=== PATIENT | female | born 1965 | race Caucasian/White ===

== ENCOUNTER 2016-06-27 14:28 | Emergency (ER) | payer OTHER ==
[2016-06-27 14:34] VITALS: BMI 32.5
[2016-06-27] MEDS ORDERED: METOCLOPRAMIDE HCL INJECTION 10 MG/2 ML VIAL IVPUSH ONE (15:28)
[2016-06-27] MEDS ORDERED: SODIUM CHLORIDE 1,000 ML IV ONE (15:28)
--- NOTE | 2016-06-27 15:31 | PDOC ---
History of Present Illness - General History Source: Patient Exam Limitations: No Limitations - History of Present Illness Initial Comments: 06/27/16 17:04 "The patient is a 51-year-old female, with a significant past medical history of CAD (stent placement), HTN, hyperlipidemia, and acid reflux, who present to the ED with chills, lightheadedness, and nausea today. The patient states that she began to experience chills and lightheadedness around 1PM today. She states that her ""hands looked white"". She reports feeling nauseous but denies any vomiting. She also reports experiencing shortness of breath during her episode of lightheadedness that has now resolved. Upon arrival to the ED, the patient states that she is still feeling lightheaded, nauseous, and now has a headache. Pt's last visit to her [facility] was back in July. Pt denies any vertigo, vision changes, numbness/tingling/weakness, neck pain, back pain. PCP: Dr. Juárez Phone: The patient denies any fever, cough, rhinorrhea, sore throat, vomiting, or abdominal pain. The patient denies any chest pain. " <Juana Dalton - Last Filed: 06/27/16 17:04> <Yosef Cabral - Last Filed: 06/27/16 17:42> - General Chief Complaint: Weakness Stated Complaint: SOB, NAUSEA Time Seen by Provider: 06/27/16 15:07 Past History <Juana Dalton - Last Filed: 06/27/16 17:04> - Past Medical History Anemia: Yes Asthma: No Cancer: No Cardiac Disorders: Yes (heart attack 2008, stent) CVA: No COPD: No CHF: No Dementia: No Diabetes: No GI Disorders: Yes (reflux) Disorders: No HTN: Yes Hypercholesterolemia: Yes Liver Disease: No Seizures: No Thyroid Disease: No - Surgical History Abdominal Surgery: No Appendectomy: No Cardiac Surgery: Yes (cardiac stents) Cholecystectomy: Yes Lung Surgery: No Neurologic Surgery: No Orthopedic Surgery: Yes (left shoulder arthroscopy 6 weeks ago) - Immunization History Immunization Up to Date: Yes - Psycho/Social/Smoking Cessation Hx Anxiety: No Suicidal Ideation: No Smoking Status: No Smoking History: Never smoked Have you smoked in the past 12 months: No Number of Cigarettes Smoked Daily: 0 Information on smoking cessation initiated: No Hx Alcohol Use: No Drug/Substance Use Hx: No Substance Use Type: None Hx Substance Use Treatment: No <Yosef Cabral - Last Filed: 06/27/16 17:42> - Past Medical History Allergies/Adverse Reactions: Allergies Allergy/AdvReac Type Severity Reaction Status Date / Time No Known Allergies Allergy Verified 06/27/16 14:34 Home Medications: Ambulatory Orders Aspirin [ASA -] 81 mg PO DAILY 06/27/16 Fenofibrate [Lofibra] 160 mg PO DAILY 06/27/16 Lisinopril/Hydrochlorothiazide [Lisinopril-Hctz 10-12.5 mg Tab] 1 each PO DAILY 06/27/16 Metoprolol Succinate [Toprol Xl -] 50 mg PO DAILY 06/27/16 Pravastatin Sodium [Pravachol (Nf)] 20 mg PO HS 06/27/16 Ranitidine HCl [Zantac] 150 mg PO DAILY 06/27/16 Review of Systems - Review of Systems Able to Perform ROS?: Yes Comments:: 06/27/16 17:04 CONSTITUTIONAL: Reported: (+)Chills No reported: Fever, Diaphoresis, Generalized Weakness, Malaise, Loss of Appetite HEENT: No reported: Rhinorrhea, Nasal Congestion, Throat Pain, Throat Swelling, Difficulty Swallowing, Mouth Swelling, Ear Pain, Eye Pain, Visual Changes CARDIOVASCULAR: No reported: Chest Pain, Syncope, Palpitations, Irregular Heart Rate, Peripheral Edema RESPIRATORY: No reported: Cough, Shortness of Breath, SOB with Exertion, Orthopnea, Wheezing , Stridor, Hemoptysis GASTROINTESTINAL: Reported: Nausea No reported: Abdominal pain, Abdominal Distension,Vomiting, Diarrhea, Constipation, Melena, Hematochezia GENITOURINARY: No reported: Dysuria, Frequency, Urgency, Hesitancy, Flank Pain, Genital Pain MUSCULOSKELETAL: No reported: Myalgia, Arthralgia, Joint Swelling, Back pain, Neck Pain SKIN: No reported: Rash, Itching, Pallor HEMEATOLOGIC/IMMUNOLOGIC: No reported: Easy Bleeding, Easy Bruising, Lymphadenopathy, Frequent infections ENDOCRINE: No reported: Unexplained Weight Gain, Unexplained Weight Loss, Heat Intolerance , Cold Intolerance NEUROLOGIC: Reported: Headache, Lightheadedness No reported: Focal Weakness, Paresthesias, Vertigo, Unsteady Gait, Seizure, Mental Status Changes, Incontinence PSYCHIATRIC: No reported: Anxiety, Depression <Juana Dalton - Last Filed: 06/27/16 17:04> *Physical Exam - Vital Signs Last Vital Signs Temp Pulse Resp BP Pulse Ox 83 18 157/86 100 06/27/16 14:32 06/27/16 14:32 06/27/16 14:32 06/27/16 14:32 - Physical Exam Comments: 06/27/16 17:05 GENERAL: The patient is awake, alert, and fully oriented, Nontoxic - in no acute distress. HEAD: Normocephalic, atraumatic. EYES: extraocular movements intact, sclera anicteric, conjunctiva clear. ENT: Normal voice, Moist mucous membranes. NECK: Normal range of motion, supple LUNGS: Breath sounds equal, clear to auscultation bilaterally. No wheezes, no rhonchi, no rales. HEART: Regular rate and rhythm, without murmur, rub or gallop. ABDOMEN: Soft, nontender, normoactive bowel sounds. No guarding, no rebound.No CVA tenderness EXTREMITIES: Normal range of motion, no edema. No clubbing or cyanosis. No cords, erythema, or tenderness. NEUROLOGICAL: No facial assymetry, Normal speech, PSYCH: Normal mood, normal affect. SKIN: Warm, Dry, normal turgor, <ShaMaximeJuana - Last Filed: 06/27/16 17:04> - Vital Signs Last Vital Signs Temp Pulse Resp BP Pulse Ox 83 18 157/86 100 06/27/16 14:32 06/27/16 14:32 06/27/16 14:32 06/27/16 14:32 <Yosef Cabral - Last Filed: 06/27/16 17:42> Heart Score/ECG Review - ECG Impressions Comment:: 06/27/16 17:24 Twelve-lead EKG was performed and reviewed by me. There is normal sinus rhythm with a normal rate. Rate of 63 criteria for LVH. no st changes suggestive of acute ischemia EKG UNCHANGED FROM PREVIOUS EKG IN 2013 <Yosef Cabral - Last Filed: 06/27/16 17:42> ED Treatment Course - LABORATORY CBC & Chemistry Diagram: 06/27/16 16:53 06/27/16 16:53 - Medications Given in the ED: ED Medications Discontinued Medications Generic Name Dose Route Start Last Admin Trade Name Bhargav PRN Reason Stop Dose Admin Sodium Chloride 1,000 mls @ 1,000 mls/hr 06/27/16 15:28 06/27/16 16:21 Normal Saline - IV 06/27/16 16:27 1,000 mls/hr .Q1H ONE Administration Metoclopramide HCl 10 mg 06/27/16 15:28 06/27/16 16:22 Reglan Injection - IVPUSH 06/27/16 15:29 10 mg ONCE ONE Administration <Juana Dalton - Last Filed: 06/27/16 17:04> - LABORATORY CBC & Chemistry Diagram: 06/27/16 16:53 06/27/16 16:53 - RADIOLOGY Radiology Studies Ordered: Category Date Time Status CHEST X-RAY PORTABLE* [RAD] Stat Radiology 06/27/16 15:28 Ordered <MariannaYosef - Last Filed: 06/27/16 17:42> Medical Decision Making - Medical Decision Making 06/27/16 15:29 51y F hx of htn, hl, cad (s/p stent), presents with sudden onset of generalized fatigue, feeling slightly lightheaded (Denies vertigo) associated with nausea, mild headache, feeling warm - no associated cough, levin, cp, nasal congestion, abd pain, vomiting, diarrhea, dysuria, fever/chills. Pts exam is unremarkable will ck labs to r.o anemia, metabolic dernagement will ck ekg to screen for acs will give fluids reglan will reassess 06/27/16 17:40 Patient's blood work was reviewed it is unremarkable The patient's EKG is unchanged from her prior EKG in 2013 The patient was reassessed she is feeling improved, asymptomatic. We'll discharge patient to follow up with primary care doctor return precautions were discussed including any change in symptoms or feeling worse. I discussed the physical exam findings, ancillary test results and final diagnoses with the patient. I answered all of the patient's questions. The patient was satisfied with the care received and felt comfortable with the discharge plan and treatment plan. The patient will call their primary care physician within 24 hours to arrange follow-up and will return to the Emergency Department with any new, persistent or worsening symptoms. A portion of this note was documented by scribe services under my direction. I have reviewed the details of the note, within reason, and agree with the documentation with the following case summary and management plan written by me <Yosef Cabral - Last Filed: 06/27/16 17:42> *DC/Admit/Observation/Transfer - Attestations Scribe Attestion: 06/27/16 17:05 Documentation prepared by Juana Dalton, acting as director of graduate medical education for Yosef Cabral MD. <Juana Dalton - Last Filed: 06/27/16 17:04> - Discharge Dispostion Admit: No <Yosef Cabral - Last Filed: 06/27/16 17:42> Diagnosis at time of Disposition: Malaise - Discharge Dispostion Disposition: HOME Condition at time of disposition: Improved - Referrals Referrals: Jesu Juárez [Primary Care Provider] - - Patient Instructions Printed Discharge Instructions: DI for Fatigue Additional Instructions: Return to the emergency department immediately with ANY new, persistent or worsening symptoms including any worsening of your symptoms, any headache, dizziness, chest pain, vomiting, fevers or other concerns. You MUST call and follow up with your doctor tomorrow for further evaluation of your symptoms. Results were discussed with you. Please make sure your doctor reviews the results of your emergency evaluation. Print Language: CROATIAN
[2016-06-27] MEDS ORDERED: METOCLOPRAMIDE HCL INJECTION 10 MG/2 ML VIAL ONE (16:17)
[2016-06-27 17:04] LABS: URINE APPEARANCE CLEAR; URINE BILIRUBIN NEGATIVE (NEGATIVE); URINE BLOOD NEGATIVE (NEGATIVE); URINE COLOR STRAW; URINE GLUCOSE (UA) NEGATIVE (NEGATIVE); URINE KETONE NEGATIVE (NEGATIVE); URINE LEUK ESTERASE NEGATIVE (NEGATIVE); URINE NITRITE NEGATIVE (NEGATIVE); URINE PROTEIN NEGATIVE (NEGATIVE); URINE UROBILINOGEN NEGATIVE E.U./dl (0.2-1.0)
[2016-06-27 17:05] LABS: BASOPHIL 0.4 % (0-2.0); EOSINOPHIL 0.2 % (0-4.5); MCH 28.1 pg (25.7-33.7); MEAN CELL VOLUME 85.2 fl (80-96); MEAN PLT VOLUME 8.4 fl (7.5-11.1); NEUTROPHILS 78.2 % (42.8-82.8); PLATELET COUNT 312 K/MM3 (134-434); RDW 13.4 % (11.6-15.6); WHITE BLOOD COUNT 12.1 K/mm3 (4.0-10.0)
[2016-06-27 17:28] LABS: ALBUMIN 4.7 g/dl (3.4-5.0); ANION GAP 5 (8-16); CALCIUM 9.6 mg/dL (8.5-10.1); CO2 30 mmol/L (21-32); CREATININE 0.8 mg/dL (0.55-1.02); GLUCOSE,RANDOM 105 mg/dL (74-106); MAGNESIUM 2.1 mg/dL (1.8-2.4); SGOT/AST 22 U/L (15-37); SGPT/ALT 40 U/L (12-78)
[2016-06-27 17:30] LABS: ALK PHOS 83 U/L (45-117); BILIRUBIN,TOTAL 0.4 mg/dL (0.2-1.0); TOT PROT 8.1 g/dl (6.4-8.2)
[2016-06-27 17:50] VITALS: BP 118/67; PULSE 72
--- NOTE | 2016-06-28 11:25 | EKG ---
Test Reason : Blood Pressure : / mmHG Vent. Rate : 063 BPM Atrial Rate : 063 BPM P-R Int : 184 ms QRS Dur : 092 ms QT Int : 434 ms P-R-T Axes : 020 -13 006 degrees QTc Int : 444 ms NORMAL SINUS RHYTHM MODERATE VOLTAGE CRITERIA FOR LVH, MAY BE NORMAL VARIANT WHEN COMPARED WITH ECG OF 13-OCT-2014 22:12, SINUS RHYTHM HAS REPLACED ATRIAL FIBRILLATION Confirmed by NOHEMY PEREZ, ASHUTOSH ([id number]) on 06/28/2016 11:25:33 AM Referred By: Confirmed By:ASHUTOSH SLATER MD
== END 2016-06-27 17:50 | disposition home or self-care (01) ==
LOC: JER 14:28
PROC: 3E033GC Introduction of Other Therapeutic Substance into Peripheral Vein, Percutaneous Approach (ICD-10-PCS; principal; 2016-06-27)
DX: R53.81 Other malaise (principal); I10 Essential (primary) hypertension; E78.5 Hyperlipidemia, unspecified; E78.00 Pure hypercholesterolemia, unspecified; Z95.5 Presence of coronary angioplasty implant and graft
CPT/HCPCS: 36415; 71010-TC; 80053; 81003; 83735; 85025; 93005; 93010; 99283-25

== ENCOUNTER 2017-06-11 19:29 | Emergency (ER) | payer OTHER ==
[2017-06-11 19:41] VITALS: BP 140/86; PULSE 102; TEMP 98.1; BMI 30.7
[2017-06-11] MEDS ORDERED: ONDANSETRON *ODT* 4 MG TABLET SL ONE (19:44)
--- NOTE | 2017-06-11 19:45 | PDOC ---
Rapid Medical Evaluation Chief Complaint: Vomiting/Diarrhea Time Seen by Provider: 06/11/17 19:43 Medical Evaluation: Allergies Allergy/AdvReac Type Severity Reaction Status Date / Time No Known Allergies Allergy Verified 06/27/16 14:34 Vital Signs Temp Pulse Resp BP Pulse Ox 98.1 F 102 H 17 140/86 98 06/11/17 19:40 06/11/17 19:40 06/11/17 19:40 06/11/17 19:40 06/11/17 19:40 06/11/17 19:45 I have performed a brief in-person evaluation of this patient. The patient presents with a chief complaint of: vomiting/diarrhea since this am I have ordered the following: zofran The patient will proceed to the ED for further evaluation. Discharge Disposition - Diagnosis Vomiting - Referrals - Patient Instructions - Post Discharge Activity
--- NOTE | 2017-06-11 22:15 | PDOC ---
History of Present Illness - History of Present Illness Initial Comments: 06/11/17 22:23 The patient is a 52 year old female, with a significant past medical history of hypertension (compliant with medications), who presents to the emergency department with nausea, vomiting, diarrhea since this morning, She reportedly returned a month ago from the [facility] [place], however, states her symptoms just started this morning. She denies visualizing blood in her stools or emesis. She denies chest pain, shortness of breath, headache and dizziness. She denies fever, chills, and constipation. She denies dysuria, frequency, urgency and hematuria. Allergies: NKDA Past surgical history: cholecystectomy, hysterectomy <Mary Pat - Last Filed: 06/11/17 22:23> - General History Source: Patient <Junito Carrasquillo - Last Filed: 06/12/17 00:59> - General Chief Complaint: Vomiting/Diarrhea Stated Complaint: VOMITING Time Seen by Provider: 06/11/17 19:43 Past History <Mary Pat - Last Filed: 06/11/17 22:23> - Past Medical History Anemia: Yes Asthma: No Cancer: No Cardiac Disorders: Yes (heart attack 2008, stent) CVA: No COPD: No CHF: No Dementia: No Diabetes: No GI Disorders: Yes (reflux) Disorders: No HTN: Yes Hypercholesterolemia: Yes Liver Disease: No Seizures: No Thyroid Disease: No - Surgical History Abdominal Surgery: No Appendectomy: No Cardiac Surgery: Yes (cardiac stents) Cholecystectomy: Yes Lung Surgery: No Neurologic Surgery: No Orthopedic Surgery: Yes (left shoulder arthroscopy 6 weeks ago) - Immunization History Immunization Up to Date: Yes - Suicide/Smoking/Psychosocial Hx Smoking Status: No Smoking History: Never smoked Have you smoked in the past 12 months: No Number of Cigarettes Smoked Daily: 0 Information on smoking cessation initiated: No Hx Alcohol Use: No Drug/Substance Use Hx: No Substance Use Type: None Hx Substance Use Treatment: No <Junito Carrasquillo - Last Filed: 06/12/17 00:59> - Past Medical History Allergies/Adverse Reactions: Allergies Allergy/AdvReac Type Severity Reaction Status Date / Time No Known Allergies Allergy Verified 06/11/17 22:55 Home Medications: Ambulatory Orders Aspirin [ASA -] 81 mg PO DAILY 06/27/16 Fenofibrate [Lofibra] 160 mg PO DAILY 06/27/16 Lisinopril/Hydrochlorothiazide [Lisinopril-Hctz 10-12.5 mg Tab] 1 each PO DAILY 06/27/16 Metoprolol Succinate [Toprol Xl -] 50 mg PO DAILY 06/27/16 Pravastatin Sodium [Pravachol (Nf)] 20 mg PO HS 06/27/16 Ranitidine HCl [Zantac] 150 mg PO DAILY 06/27/16 Dicyclomine HCl [Bentyl] 20 mg PO Q6H #20 tablet 06/12/17 Pantoprazole Sodium [Protonix] 40 mg PO DAILY #30 tablet. 06/12/17 Review of Systems - Review of Systems Able to Perform ROS?: Yes Comments:: 06/11/17 22:24 CONSTITUTIONAL: Absent: fever, chills, diaphoresis, generalized weakness, malaise, loss of appetite HEENT: Absent: rhinorrhea, nasal congestion, throat pain, throat swelling, difficulty swallowing, mouth swelling, ear pain, eye pain, visual Changes CARDIOVASCULAR: Absent: chest pain, syncope, palpitations, irregular heart rate, lightheadedness , peripheral edema RESPIRATORY: Absent: cough, shortness of breath, dyspnea with exertion, orthopnea, wheezing, stridor, hemoptysis GASTROINTESTINAL: (+) nausea, vomiting, diarrhea, Absent: abdominal pain, abdominal distension, constipation, melena, hematochezia GENITOURINARY: Absent: dysuria, frequency, urgency, hesitancy, hematuria, flank pain, genital pain MUSCULOSKELETAL: Absent: myalgia, arthralgia, joint swelling SKIN: Absent: rash, itching, pallor HEMATOLOGIC/IMMUNOLOGIC: Absent: easy bleeding, easy bruising, lymphadenopathy, frequent infections ENDOCRINE: Absent: unexplained weight gain, unexplained weight loss, heat intolerance, cold intolerance NEUROLOGIC: Absent: headache, focal weakness or paresthesias, dizziness, unsteady gait, seizure, mental status changes, bladder or bowel incontinence PSYCHIATRIC: Absent: anxiety, depression, suicidal or homicidal ideation, hallucinations. <Mary Pat - Last Filed: 06/11/17 22:23> *Physical Exam - Vital Signs Last Vital Signs Temp Pulse Resp BP Pulse Ox 98.1 F 102 H 17 140/86 98 06/11/17 19:40 06/11/17 19:40 06/11/17 19:40 06/11/17 19:40 06/11/17 19:40 - Physical Exam Comments: 06/11/17 22:25 GENERAL: Well developed, well nourished. Awake and alert. No acute distress. HEENT: (+) Dry mucous membranes. Normocephalic, atraumatic. PERRLA, EOMI. No conjunctival pallor. Sclera are non icteric. Oropharynx is clear. NECK: Supple. Full ROM. No JVD. Carotid pulses 2+ and symmetric, without bruits. No thyromegaly. No lymphadenopathy. CARDIOVASCULAR: Regular rate and rhythm. No murmurs, rubs, or gallops. Distal pulses are 2+ and symmetric. PULMONARY: No evidence of respiratory distress. Lungs clear to auscultation bilaterally. No wheezing, rales or rhonchi. ABDOMINAL: Soft. Non-tender. Non-distended. No rebound or guarding. No organomegaly. Normoactive bowel sounds. MUSCULOSKELETAL Normal range of motion at all joints. No bony deformities or tenderness. No CVA tenderness. EXTREMITIES: No cyanosis. No clubbing. No edema. No calf tenderness. SKIN: Warm and dry. Normal capillary refill. No rashes. No jaundice. NEUROLOGICAL: Alert, awake, appropriate. Cranial nerves 2-12 intact. Normoreflexic in the upper and lower extremities. Normal speech. Toes are down-going bilaterally. Gait is normal without ataxia. PSYCHIATRIC: Cooperative. Good eye contact. Appropriate mood and affect. <Mary Pat - Last Filed: 06/11/17 22:23> - Vital Signs Last Vital Signs Temp Pulse Resp BP Pulse Ox 98.1 F 102 H 17 140/86 98 06/11/17 19:40 06/11/17 19:40 06/11/17 19:40 06/11/17 19:40 06/11/17 19:40 <Junito Carrasquillo - Last Filed: 06/12/17 00:59> ED Treatment Course - LABORATORY CBC & Chemistry Diagram: 06/11/17 22:50 06/11/17 22:50 <Junito Carrasquillo - Last Filed: 06/12/17 00:59> Medical Decision Making - Medical Decision Making 06/12/17 00:57 Dr. Sinisterra: The scribe's documentation has been prepared under my direction and personally reviewed by me in its entirery. I confirm that the note above accurately reflects all work, treatment, procedures, and medical decision making performed by me. Pt feels better. Pt will follow up with her pcp or GI as needed if her symptoms persist. <Junito Carrasquillo - Last Filed: 06/12/17 00:59> *DC/Admit/Observation/Transfer - Attestations Scribe Attestion: 06/11/17 22:25 Documentation prepared by Mary Pta, acting as medical laboratory manager for Junito Carrasquillo DO <Mary Pat - Last Filed: 06/11/17 22:23> - Discharge Dispostion Admit: No <Junito Carrasquillo - Last Filed: 06/12/17 00:59> Diagnosis at time of Disposition: Vomiting - Discharge Dispostion Disposition: HOME Condition at time of disposition: Stable - Prescriptions Prescriptions: Dicyclomine HCl [Bentyl] 20 mg PO Q6H #20 tablet Pantoprazole Sodium [Protonix] 40 mg PO DAILY #30 tablet.dr - Referrals Referrals: Jesu Juárez [Primary Care Provider] - Kyle Castillo MD [Staff Physician] - - Patient Instructions Printed Discharge Instructions: DI for Vomiting -- Adult Additional Instructions: Please take medication as directed. Follow up with your doctor as soon as possible if symptoms don't improve. Print Language: MONEGASQUE - Post Discharge Activity
[2017-06-11] MEDS ORDERED: KETOROLAC TROMETHAMINE 30 MG/1 ML VIAL IVPUSH ONE (22:20)
[2017-06-11] MEDS ORDERED: ONDANSETRON 4 MG/2 ML VIAL IVPUSH STA (22:20)
[2017-06-11] MEDS ORDERED: SODIUM CHLORIDE 1,000 ML IV STA (22:20)
[2017-06-11] MEDS ORDERED: ONDANSETRON 4 MG/2 ML VIAL ONE (22:40)
[2017-06-11] MEDS ORDERED: KETOROLAC TROMETHAMINE 30 MG/1 ML VIAL ONE (22:40)
[2017-06-11] MEDS ORDERED: ONDANSETRON *ODT* 4 MG TABLET ONE (22:40)
[2017-06-11 23:05] LABS: MCH 28.2 pg (25.7-33.7); MCHC 33.5 g/dl (32.0-36.0); MEAN CELL VOLUME 84.2 fl (80-96); MEAN PLT VOLUME 8.8 fl (7.5-11.1); PLATELET COUNT 258 K/MM3 (134-434); RDW 14.2 % (11.6-15.6); WHITE BLOOD COUNT 9.3 K/mm3 (4.0-10.0)
[2017-06-11 23:06] LABS: URINE APPEARANCE TURBID; URINE BILIRUBIN NEGATIVE (NEGATIVE); URINE BLOOD 1+ (NEGATIVE); URINE COLOR YELLOW; URINE GLUCOSE (UA) NEGATIVE (NEGATIVE); URINE KETONE TRACE (NEGATIVE); URINE LEUK ESTERASE NEGATIVE (NEGATIVE); URINE NITRITE NEGATIVE (NEGATIVE); URINE PROTEIN NEGATIVE (NEGATIVE); URINE UROBILINOGEN NEGATIVE mg/dL (0.2-1.0)
[2017-06-11 23:51] LABS: MAGNESIUM 1.9 mg/dL (1.8-2.4)
[2017-06-11 23:54] LABS: URINE MUCUS RARE; URINE RBC 3 /hpf (0-3)
[2017-06-11 23:58] LABS: ALBUMIN 4.3 g/dl (3.4-5.0); ALK PHOS 68 U/L (45-117); ANION GAP 10 (8-16); BILIRUBIN,TOTAL 0.4 mg/dL (0.2-1.0); CALCIUM 9.1 mg/dL (8.5-10.1); CO2 27 mmol/L (21-32); CREATININE 0.8 mg/dL (0.55-1.02); GLUCOSE,RANDOM 147 mg/dL (74-106); SGOT/AST 21 U/L (15-37); SGPT/ALT 38 U/L (12-78); TOT PROT 7.9 g/dl (6.4-8.2)
[2017-06-11 23:59] LABS: PLATELET ESTIMATE ADEQUATE
[2017-06-12 00:04] LABS: INR 1.16 (0.82-1.09); PROTHROMBIN TIME (PATIENT) 13.1 SEC (9.98-11.88)
[2017-06-12] MEDS ORDERED: PANTOPRAZOLE SODIUM 40 MG in SODIUM CHLORIDE 100 ML IVPB ONE (00:55)
[2017-06-12] MEDS ORDERED: PANTOPRAZOLE 40 MG TABLET (FP) PO ONE (00:57)
[2017-06-12] MEDS ORDERED: PSEUDOEPHEDRINE HCL 60 MG TABLET ONE (01:17)
[2017-06-12] MEDS ORDERED: PANTOPRAZOLE 40 MG TABLET (FP) ONE (01:31)
[2017-06-12] MEDS ORDERED: PANTOPRAZOLE SODIUM 40 MG/100 ML BAG IVPB ONE (01:31)
[2017-06-12 10:55] LABS: URINE LEUK ESTERASE Negative (NEGATIVE)
== END 2017-06-12 01:53 | disposition home or self-care (01) ==
LOC: JER 19:29
PROC: 3E0333Z Introduction of Anti-inflammatory into Peripheral Vein, Percutaneous Approach (ICD-10-PCS; principal; 2017-06-11)
PROC: 3E033GC Introduction of Other Therapeutic Substance into Peripheral Vein, Percutaneous Approach (ICD-10-PCS; 2017-06-11)
PROC: 3E0337Z Introduction of Electrolytic and Water Balance Substance into Peripheral Vein, Percutaneous Approach (ICD-10-PCS; 2017-06-11)
DX: R11.10 Vomiting, unspecified (principal); K21.9 Gastro-esophageal reflux disease without esophagitis; I10 Essential (primary) hypertension; E78.00 Pure hypercholesterolemia, unspecified; I25.2 Old myocardial infarction; Z95.5 Presence of coronary angioplasty implant and graft
CPT/HCPCS: 36415; 80053; 81003; 81015; 83690; 83735; 85025; 85610; 99281-25

== ENCOUNTER 2017-12-06 05:08 | Emergency (ER) | payer OTHER ==
--- NOTE | 2017-12-06 05:33 | PDOC ---
History of Present Illness - General History Source: Patient Exam Limitations: No Limitations - History of Present Illness Initial Comments: 12/06/17 06:27 The patient is a 52 year old female with past medical history of HTN, CAD (3 stent placement), HLD, and acid reflux presents to the emergency department with heart palpitations. The patient states she was woken up from sleep w/ palpitations that started at 3:00 am in the morning, lasting 2 hours. The patient reports a similar incident in the past, was admitted to the hospital and referred to a cardiac follow with Dr. Wade, with poor follow up. The patient reports a similar incident a week prior to seeing Dr. Ordaz 2 weeks ago. The patient states she was supposed to start monitoring but didnt do it yet. The patient is scheduled for an echo on December 10, 2017. The patient didn t want to wait till the for been evaluated leading to the visit today. Denies recent change in medication. Denies chest pain or sob. Denies fever, chills, cough or headache. Denies chest pain, dyspnea, orthopnea or sob. Denies abdominal pain or back pain. Denies numbness, tingling or loss of sensation. Denies nausea or vomiting. Denies diarrhea or constipation. Allergies: NKDA Social history: None reported Surgical history: cardiac stents and left shoulder arthroscopy PCP: Dr. Kelvin Mckenna MD. Shipping And Receiving Associate: Dr. Angel Ordaz MD. <Amalia Berman - Last Filed: 12/06/17 06:27> - General History Source: Patient Exam Limitations: No Limitations <Willow Rowe - Last Filed: 12/06/17 06:36> - General Chief Complaint: Palpitations Stated Complaint: PALPITATION Time Seen by Provider: 12/06/17 05:32 Past History <Amalia Berman - Last Filed: 12/06/17 06:27> - Past Medical History Anemia: Yes Asthma: No Cancer: No Cardiac Disorders: Yes (heart attack 2008, stent) CVA: No COPD: No CHF: No Dementia: No Diabetes: No GI Disorders: Yes (reflux) Disorders: No HTN: Yes Hypercholesterolemia: Yes Liver Disease: No Seizures: No Thyroid Disease: No - Surgical History Abdominal Surgery: No Appendectomy: No Cardiac Surgery: Yes (cardiac stents) Cholecystectomy: Yes Lung Surgery: No Neurologic Surgery: No Orthopedic Surgery: Yes (left shoulder arthroscopy 6 weeks ago) - Immunization History Immunization Up to Date: Yes - Suicide/Smoking/Psychosocial Hx Smoking Status: No Smoking History: Never smoked Have you smoked in the past 12 months: No Number of Cigarettes Smoked Daily: 0 Hx Alcohol Use: No Drug/Substance Use Hx: No Substance Use Type: None Hx Substance Use Treatment: No <Willow Rowe - Last Filed: 12/06/17 06:36> - Past Medical History Allergies/Adverse Reactions: Allergies Allergy/AdvReac Type Severity Reaction Status Date / Time No Known Allergies Allergy Verified 12/06/17 05:42 Home Medications: Ambulatory Orders Aspirin [ASA -] 81 mg PO DAILY 06/27/16 Fenofibrate [Lofibra] 160 mg PO DAILY 06/27/16 Lisinopril/Hydrochlorothiazide [Lisinopril-Hctz 10-12.5 mg Tab] 1 each PO DAILY 06/27/16 Metoprolol Succinate [Toprol Xl -] 50 mg PO DAILY 06/27/16 Pravastatin Sodium [Pravachol (Nf)] 20 mg PO HS 06/27/16 Ranitidine HCl [Zantac] 150 mg PO DAILY 06/27/16 Pantoprazole Sodium [Protonix] 40 mg PO DAILY #30 tablet. 06/12/17 Review of Systems - Review of Systems Able to Perform ROS?: Yes Comments:: 12/06/17 06:29 GENERAL/CONSTITUTIONAL: No fever or chills. No weakness. HEAD, EYES, EARS, NOSE AND THROAT: No change in vision. No ear pain or discharge. No sore throat. CARDIOVASCULAR: (+) Palpitations No chest pain or shortness of breath. RESPIRATORY: No cough, wheezing, or hemoptysis. GASTROINTESTINAL: No nausea, vomiting, diarrhea or constipation. GENITOURINARY: No dysuria, frequency, or change in urination. MUSCULOSKELETAL: No joint or muscle swelling or pain. No neck or back pain. SKIN: No rash NEUROLOGIC: No headache, vertigo, loss of consciousness, or change in strength/ sensation. ENDOCRINE: No increased thirst. No abnormal weight change. HEMATOLOGIC/LYMPHATIC: No anemia, easy bleeding, or history of blood clots <Amalia Berman - Last Filed: 12/06/17 06:27> *Physical Exam - Vital Signs Last Vital Signs Temp Pulse Resp BP Pulse Ox 98.1 F 85 15 107/89 96 12/06/17 05:24 12/06/17 05:24 12/06/17 05:24 12/06/17 05:24 12/06/17 05:24 - Physical Exam Comments: 12/06/17 06:30 GENERAL: The patient is in no acute distress. HEAD: Normal with no signs of trauma. EYES: PERRLA, EOMI, sclera anicteric, conjunctiva clear. ENT: Ears normal, nares patent, oropharynx clear without exudates. Moist mucous membranes. NECK: Normal range of motion, supple without lymphadenopathy, JVD, or masses. LUNGS: Breath sounds equal, clear to auscultation bilaterally. No wheezes, and no crackles. HEART:Regular rate and rhythm, normal S1 and S2 without murmur, rub or gallop. ABDOMEN: Soft, nontender, normoactive bowel sounds. No guarding, no rebound. No masses palpable. EXTREMITIES: Normal range of motion, no edema. No clubbing or cyanosis. No erythema, or tenderness. NEUROLOGICAL: Cranial nerves II through XII grossly intact. Normal speech. No focal neurological deficits. MUSCULOSKELETAL: Back non-tender to palpation, no CVA tenderness SKIN: Warm, Dry, normal turgor, no rashes or lesions noted. <Amalia Berman - Last Filed: 12/06/17 06:27> ED Treatment Course - LABORATORY CBC & Chemistry Diagram: 12/06/17 05:44 12/06/17 05:44 - ADDITIONAL ORDERS Additional order review: Laboratory Results 12/06/17 12/06/17 12/06/17 05:44 05:44 05:44 Sodium 141 Potassium 4.4 Chloride 108 H Carbon Dioxide 27 Anion Gap 6 L BUN 23 H Creatinine 0.8 Creat Clearance w eGFR > 60 Random Glucose 135 H Calcium 8.7 Magnesium 1.9 Total Bilirubin 0.4 AST 25 ALT 46 Alkaline Phosphatase 99 Creatine Kinase 170 Troponin I < 0.02 Total Protein 6.9 Albumin 3.6 TSH 3.16 Serum , Qual Negative 12/06/17 05:44 RBC 4.63 MCV 84.6 MCHC 34.1 RDW 13.6 MPV 8.8 Neutrophils % 57.9 D Lymphocytes % 30.3 D Monocytes % 9.4 Eosinophils % 1.7 D Basophils % 0.7 <Amalia Berman - Last Filed: 12/06/17 06:27> - LABORATORY CBC & Chemistry Diagram: 12/06/17 05:44 12/06/17 05:44 <Willow Rowe - Last Filed: 12/06/17 06:36> Medical Decision Making - Medical Decision Making 12/06/17 06:17 Ms Nova is a 52 yo F who presents with a complaint of approximately 2 hours of palpitations Pt has a h/o HTN, HLD, cAD s/p ND and stent x 3 Pt presents to the ER stating that she awoke from sleep with her heart racing No chest pain No SOB No nausea or vomiting Pt has had prior episodes like this Was seen by Dr Ordaz 2 weeks ago Was supposed to have ? Holter monitor vs. Event monitor Pt has not heard back from the office Has ECHO scheduled on December 10 Exam nml Will do: labs EKG compliance monitor EKG: SR, rate of 78 bpm, axis nml, no ST elevation or depression, t waves upright 12/06/17 06:27 Laboratory Tests 12/06/1718 12/06/17 05:44 05:44 05:44 WBC 8.3 Hgb 13.3 Hct 39.1 Plt Count 217 Sodium 141 Potassium 4.4 Chloride 108 H Carbon Dioxide 27 BUN 23 H Creatinine 0.8 Random Glucose 135 H Creatine Kinase 170 Troponin I < 0.02 TSH Serum , Qual Negative 12/06/17 05:44 WBC Hgb Hct Plt Count Sodium Potassium Chloride Carbon Dioxide BUN Creatinine Random Glucose Creatine Kinase Troponin I TSH 3.16 Serum , Qual 12/06/17 06:[address] Medeiros He recommends discharge Will repeat trop D/c home Clinical impression:palpitations, initial presentation <Willow Rowe - Last Filed: 12/06/17 06:36> *DC/Admit/Observation/Transfer <Amalia Berman - Last Filed: 12/06/17 06:27> - Discharge Dispostion Decision to Admit order: No <Willow Rowe - Last Filed: 12/06/17 06:36> Diagnosis at time of Disposition: Palpitations - Discharge Dispostion Condition at time of disposition: Stable - Referrals Referrals: Kelvin Mckenna MD [Primary Care Provider] - - Patient Instructions Printed Discharge Instructions: DI for Palpitations, DI for Arrhythmias Additional Instructions: Please be sure to follow up with Dr Ordaz Return to the ER for any other concerns or complaints - Post Discharge Activity Forms/Work/School Notes: Back to Work
[2017-12-06 05:42] VITALS: BMI 25.7
[2017-12-06 06:13] LABS: ALBUMIN 3.6 g/dl (3.4-5.0); ANION GAP 6 (8-16); BLOOD UREA NITROGEN 23 mg/dL (7-18); CALCIUM 8.7 mg/dL (8.5-10.1); CHLORIDE 108 mmol/L (98-107); CO2 27 mmol/L (21-32); CREATININE 0.8 mg/dL (0.55-1.02); GLUCOSE,RANDOM 135 mg/dL (74-106); MAGNESIUM 1.9 mg/dL (1.8-2.4); POTASSIUM 4.4 mmol/L (3.5-5.1); SGOT/AST 25 U/L (15-37); SGPT/ALT 46 U/L (12-78); SODIUM 141 mmol/L (136-145)
[2017-12-06 06:17] LABS: BASO % 0.7 % (0-2.0); EOS % 1.7 % (0-4.5); HEMATOCRIT 39.1 % (32.4-45.2); HEMOGLOBIN 13.3 GM/dL (10.7-15.3); LYMPH % 30.3 % (8-40); MCH 28.8 pg (25.7-33.7); MCHC 34.1 g/dl (32.0-36.0); MEAN CELL VOLUME 84.6 fl (80-96); MEAN PLT VOLUME 8.8 fl (7.5-11.1); MONO % 9.4 % (3.8-10.2); NEUT % 57.9 % (42.8-82.8); PLATELET COUNT 217 K/MM3 (134-434); RBC 4.63 M/mm3 (3.60-5.2); RDW 13.6 % (11.6-15.6); WHITE BLOOD COUNT 8.3 K/mm3 (4.0-10.0)
[2017-12-06 06:18] LABS: ALK PHOS 99 U/L (45-117); BILIRUBIN,TOTAL 0.4 mg/dL (0.2-1.0); TOT PROT 6.9 g/dl (6.4-8.2)
[2017-12-06 06:20] LABS: PROTHROMBIN TIME (PATIENT) 11.3 SEC (9.7-13.0)
--- NOTE | 2017-12-06 09:22 | EKG ---
Test Reason : Blood Pressure : / mmHG Vent. Rate : 078 BPM Atrial Rate : 078 BPM P-R Int : 180 ms QRS Dur : 092 ms QT Int : 370 ms P-R-T Axes : 020 -12 004 degrees QTc Int : 421 ms NORMAL SINUS RHYTHM MODERATE VOLTAGE CRITERIA FOR LVH, MAY BE NORMAL VARIANT ST ELEVATION, CONSIDER EARLY REPOLARIZATION, PERICARDITIS, OR INJURY ABNORMAL ECG WHEN COMPARED WITH ECG OF 27-JUN-2016 17:07, NO SIGNIFICANT CHANGE WAS FOUND Confirmed by EVERARDO LOYD MD ([id number]) on 12/06/2017 9:22:13 AM Referred By: Confirmed By:EVERARDO LOYD MD
--- NOTE | 2017-12-06 09:29 | PDOC ---
*Physical Exam - Vital Signs Last Vital Signs Temp Pulse Resp BP Pulse Ox 98.1 F 85 15 107/89 96 12/06/17 05:24 12/06/17 05:24 12/06/17 05:24 12/06/17 05:24 12/06/17 05:24 - Physical Exam Comments: 12/06/17 09:27 "GENERAL: Awake, alert, and fully oriented, in no acute distress. HEAD: No signs of trauma EYES: PERRLA, EOMI, sclera anicteric, conjunctiva clear ENT: Auricles normal inspection, hearing grossly normal, nares patent, oropharynx clear without exudates. Moist mucosa NECK: Nontender, no stepoffs, Normal ROM, supple, no lymphadenopathy, JVD, or masses LUNGS: Breath sounds equal, clear to auscultation bilaterally. No wheezes, and no crackles HEART: Regular rate and rhythm, normal S1 and S2, no murmurs, rubs or gallops ABDOMEN: Soft, nontender, normoactive bowel sounds. No guarding, no rebound. No masses EXTREMITIES: Normal range of motion, no edema. No clubbing or cyanosis. No cords, erythema, or tenderness NEUROLOGICAL: Cranial nerves II through XII intact. 5/5 strength and sensation in all extremities, Normal speech, normal gait, normal cerebellar function SKIN: Warm, Dry, normal turgor, no rashes or lesions noted. " ED Treatment Course - LABORATORY CBC & Chemistry Diagram: 12/06/17 05:44 12/06/17 05:44 - ADDITIONAL ORDERS Additional order review: Laboratory Results 12/06/17 12/06/17 12/06/17 08:00 05:44 05:44 PT with INR INR Sodium Potassium Chloride Carbon Dioxide Anion Gap BUN Creatinine Creat Clearance w eGFR Random Glucose Calcium Magnesium Total Bilirubin AST ALT Alkaline Phosphatase Creatine Kinase 167 Creatine Kinase Index 1.2 CK-MB (CK-2) 2.03 Troponin I < 0.02 Total Protein Albumin TSH 3.16 Serum , Qual Negative 12/06/17 12/06/17 05:44 05:44 PT with INR 11.30 INR 1.00 Sodium 141 Potassium 4.4 Chloride 108 H Carbon Dioxide 27 Anion Gap 6 L BUN 23 H Creatinine 0.8 Creat Clearance w eGFR > 60 Random Glucose 135 H Calcium 8.7 Magnesium 1.9 Total Bilirubin 0.4 AST 25 ALT 46 Alkaline Phosphatase 99 Creatine Kinase 170 Creatine Kinase Index 1.1 CK-MB (CK-2) 1.99 Troponin I < 0.02 Total Protein 6.9 Albumin 3.6 TSH Serum , Qual 12/06/17 05:44 RBC 4.63 MCV 84.6 MCHC 34.1 RDW 13.6 MPV 8.8 Neutrophils % 57.9 D Lymphocytes % 30.3 D Monocytes % 9.4 Eosinophils % 1.7 D Basophils % 0.7 Medical Decision Making - Medical Decision Making 12/06/17 09:27 52 F with intermittent palpitations. EKG wnl, with normal vitals. Pt with no recurrent palpitations while in ED. trops negative x2, labs wnl. Pt is well appearing, with normal vitals. Clinically stable for DC at this time. I discussed the physical exam findings, ancillary test results and final diagnoses with the patient. I answered all of the patient's questions. The patient was satisfied with the care received and felt comfortable with the discharge plan and treatment plan. The patient agrees to follow up with the primary care physician within 24-72 hours. *DC/Admit/Observation/Transfer Diagnosis at time of Disposition: Palpitations - Discharge Dispostion Condition at time of disposition: Stable - Referrals Referrals: Kelvin Mckenna MD [Primary Care Provider] - - Patient Instructions Printed Discharge Instructions: DI for Arrhythmias, DI for Palpitations Additional Instructions: Please be sure to follow up with Dr Ordaz Return to the ER for any other concerns or complaints - Post Discharge Activity Forms/Work/School Notes: Back to Work - Attestations Physician Attestion: 12/06/17 09:27 I, Dr. Elier Addison MD, attest that this document has been prepared under my direction and personally reviewed by me in its entirety. I further attest, that it accurately reflects all work, treatment, procedures and medical decision -making performed by me.
[2017-12-06 10:36] VITALS: BP 128/83; PULSE 82; TEMP 98.4
== END 2017-12-06 09:45 | disposition home or self-care (01) ==
LOC: JER 05:08
DX: R00.2 Palpitations (principal); I25.2 Old myocardial infarction; I25.10 Atherosclerotic heart disease of native coronary artery without angina pectoris; I10 Essential (primary) hypertension; Z95.5 Presence of coronary angioplasty implant and graft; E78.5 Hyperlipidemia, unspecified; E78.00 Pure hypercholesterolemia, unspecified; K21.9 Gastro-esophageal reflux disease without esophagitis
CPT/HCPCS: 36415; 71045-TC-FY; 80053; 82550; 82553; 83735; 84443; 84484; 84703; 85025; 85610; 93005; 93010; 99284-25

== ENCOUNTER 2019-05-30 12:39 | Emergency (ER) | payer OTHER ==
[2019-05-30 12:43] VITALS: BP 160/65; PULSE 76; TEMP 98.1; BMI 35.2
[2019-05-30] MEDS ORDERED: KETOROLAC TROMETHAMINE 30 MG/1 ML VIAL IM ONE (13:29)
[2019-05-30] MEDS ORDERED: KETOROLAC TROMETHAMINE 30 MG/1 ML VIAL ONE (13:30)
--- NOTE | 2019-05-30 13:32 | PDOC ---
History of Present Illness - General Chief Complaint: Pain Stated Complaint: BACK PAIN Time Seen by Provider: 05/30/19 12:44 History Source: Patient Exam Limitations: No Limitations - History of Present Illness Initial Comments: 05/30/19 13:29 CHIEF COMPLAINT: Lower back pain HISTORY OF PRESENT ILLNESS: 54-year-old woman past medical history of hypertension, hyperlipidemia, [place] who presents to the emergency department with nonradiating lower back pain which started while at work 4 days ago. 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 She denies neurosensory deficits, no bowel or bladder difficulty incontinence or urinary retention, no saddle anesthesia, no footdrop. No history of IVDU or hisotry of cancer. REVIEW OF SYSTEMS: GENERAL: Afebrile, denies any weakness RESPIRATORY: No cough, wheezing, or hemoptysis. CARDIAC: No chest pain or shortness of breath MUSCULOSKELETAL: Pain to generalized lower back. No point tenderness. Pain worse on right than left. SKIN : No erythema, no bruising, no deformity. GI/: Denies any abdominal pain, no urinary difficulty, incontinence or urinary retention. RECTAL: Denies any difficulty this A.m. NEUROLOGICAL: Denies any numbness or tingling. No neurosensory deficits. PHYSICAL EXAM: GENERAL: The patient is awake, alert, and fully oriented, in no acute distress. RESPIRATORY: Lungs clear bilaterally, no rhonchi wheezes or crackles CARDIAC: S1-S2 audible, no murmur rub or gallop MUSCULOSKELETAL: Pain to generalized lower back, nonradiating, no tingling or sensory deficit. Less than 2 second cap refill, +2 pedal pulses. No spinal point tenderness. Normal reflexive and no deficits to sensation or strength. Able to perform straight leg raises without difficulty. GI/: Abdomen soft, nontender, nondistended. No rebound tenderness. No masses palpable. RECTAL: Deferred patient with no neurological findings SKIN: Warm, Dry, normal turgor, no erythema, no edema no bruising. Past History - Past Medical History Allergies/Adverse Reactions: Allergies Allergy/AdvReac Type Severity Reaction Status Date / Time No Known Allergies Allergy Verified 05/30/19 12:43 Home Medications: Ambulatory Orders Aspirin [ASA -] 81 mg PO DAILY 06/27/16 Lisinopril/Hydrochlorothiazide [Lisinopril-Hctz 10-12.5 mg Tab] 1 each PO DAILY 06/27/16 Metoprolol Succinate [Toprol Xl -] 50 mg PO DAILY 06/27/16 Pravastatin Sodium [Pravachol (Nf)] 20 mg PO HS 06/27/16 Famotidine [Pepcid AC] 20 mg PO DAILY 05/30/19 Methocarbamol [Robaxin -] 1,500 mg PO Q8H PRN #30 tablet 05/30/19 Anemia: Yes Asthma: No Cancer: No Cardiac Disorders: Yes (heart attack 2007, stent) CVA: No COPD: No CHF: No Dementia: No Diabetes: No GI Disorders: Yes (reflux) Disorders: No HTN: Yes Hypercholesterolemia: Yes Liver Disease: No Seizures: No Thyroid Disease: No - Surgical History Abdominal Surgery: No Appendectomy: No Cardiac Surgery: Yes (cardiac stents) Cholecystectomy: Yes Lung Surgery: No Neurologic Surgery: No Orthopedic Surgery: Yes (left shoulder arthroscopy 6 weeks ago) - Immunization History Immunization Up to Date: Yes - Psycho Social/Smoking Cessation Hx Smoking Status: No Smoking History: Never smoked Have you smoked in the past 12 months: No Number of Cigarettes Smoked Daily: 0 Hx Alcohol Use: No Drug/Substance Use Hx: No Substance Use Type: None Hx Substance Use Treatment: No *Physical Exam - Vital Signs Last Vital Signs Temp Pulse Resp BP Pulse Ox 98.1 F 76 18 160/65 100 05/30/19 12:42 05/30/19 12:42 05/30/19 12:42 05/30/19 12:42 05/30/19 12:42 Medical Decision Making - Medical Decision Making 05/30/19 13:31 A/P: 54-year-old woman with right-sided lumbar pain Most likely musculoskeletal in nature patient did source urinary frequency Urinalysis, urine culture Toradol 30 mg IM now Reassess 05/30/19 14:10 Laboratory Tests 05/30/19 13:35 Urine Color Yellow Urine Appearance Cloudy Urine pH 5.5 Ur Specific [place] 1.024 Urine Protein Negative Urine Glucose (UA) Negative Urine Ketones Negative Urine Blood Negative Urine Nitrite Negative Urine Bilirubin Negative Urine Urobilinogen 0.2 Ur Leukocyte Esterase 1+ H Urine WBC (Auto) 4 Urine Casts (Auto) 9 U Epithel Cells (Auto) 7.4 Urine Bacteria (Auto) 693.1 Urinalysis results as noted above. Not suggestive of infection especially in absence of urinary symptoms. I would defer treatment pending culture results. Patient reports mild improvement in pain but feels well enough to go home. I will discharge the patient home with prescription for Robaxin with instructions to follow-up with her primary doctor within the next 3 days. I discussed the physical exam findings, ancillary test results and final diagnoses with the patient. I answered all of the patient's questions. The patient was satisfied with the care received and felt comfortable with the discharge plan and treatment plan. The patient will call their primary care physician within 24 hours to arrange follow-up and will return to the Emergency Department with any new, persistent or worsening symptoms. Discharge - Discharge Information Problems reviewed: Yes Clinical Impression/Diagnosis: Back strain Condition: Stable Disposition: HOME - Admission No - Additional Discharge Information Prescriptions: Methocarbamol [Robaxin -] 1,500 mg PO Q8H PRN #30 tablet PRN Reason: Back Pain - Follow up/Referral - Patient Discharge Instructions Additional Instructions: Rest, no heavy lifting or exercise until pain is resolved Hot soaks to low back as often as possible/hot showers or Jacuzzis No massage or therapy until spasm is gone Continue naproxen 2-220 mg tablets every 12 hours for the next 3 days then as needed for pain and swelling Robaxin 1500mg every 8 hours as needed for spasm If not significant improvement within 24 hours with medication and rest regime, followup with private physician for change in medications and /or therapy. - Post Discharge Activity Work/Back to School Note: Back to Work
[2019-05-30 14:06] LABS: EPI CELLS 7.4 /HPF (0-5/HPF); HYALINE CASTS 9 /lpf (0-8); PH,URINE 5.5 (5.0-8.0); URINE APPEARANCE CLOUDY; URINE BACTERIA 693.1 /hpf (NEGATIVE); URINE BILIRUBIN NEGATIVE (NEGATIVE); URINE COLOR YELLOW; URINE GLUCOSE (UA) NEGATIVE (NEGATIVE); URINE KETONE NEGATIVE (NEGATIVE); URINE LEUK ESTERASE 1+ (NEGATIVE); URINE NITRITE NEGATIVE (NEGATIVE); URINE PROTEIN NEGATIVE (NEGATIVE); URINE UROBILINOGEN 0.2 mg/dL (0.2-1.0); URINE WBC 4 /hpf (0-5)
[2019-05-30 17:51] LABS: URINE RBC 19.9 /hpf (0-4)
== END 2019-05-30 14:20 | disposition home or self-care (01) ==
LOC: JERFT 12:39
PROC: 3E0233Z Introduction of Anti-inflammatory into Muscle, Percutaneous Approach (ICD-10-PCS; principal; 2019-05-30)
DX: S39.012A Strain of muscle, fascia and tendon of lower back, initial encounter (principal); X58.XXXA Exposure to other specified factors, initial encounter; Y93.89 Activity, other specified; Y92.89 Other specified places as the place of occurrence of the external cause; I10 Essential (primary) hypertension; K21.9 Gastro-esophageal reflux disease without esophagitis; E78.00 Pure hypercholesterolemia, unspecified; Z95.5 Presence of coronary angioplasty implant and graft; I25.2 Old myocardial infarction
CPT/HCPCS: 81003; 87086; 99282-25

== ENCOUNTER 2019-07-14 11:24 | Emergency (ER) | payer OTHER ==
[2019-07-14 12:00] VITALS: PULSE 76; TEMP 98; BMI 34.3
[2019-07-14] MEDS ORDERED: ACETAMINOPHEN 500 MG TABLET (FP) PO ONE (13:13)
--- NOTE | 2019-07-14 13:16 | PDOC ---
History of Present Illness - General Chief Complaint: Headache Stated Complaint: HEADACHE Time Seen by Provider: 07/14/19 12:54 - History of Present Illness Initial Comments: 07/14/19 13:14 54-year-old female with a past medical history of [place] and hypertension takes Eliquis and metoprolol presents for evaluation of headache after an emotional episode which occurred earlier today. She is feeling better since her arrival Past History - Past Medical History Allergies/Adverse Reactions: Allergies Allergy/AdvReac Type Severity Reaction Status Date / Time No Known Allergies Allergy Verified 07/14/19 12:00 Home Medications: Ambulatory Orders Aspirin [ASA -] 81 mg PO DAILY 06/27/16 Lisinopril/Hydrochlorothiazide [Lisinopril-Hctz 10-12.5 mg Tab] 1 each PO DAILY 06/27/16 Metoprolol Succinate [Toprol Xl -] 50 mg PO DAILY 06/27/16 Pravastatin Sodium [Pravachol (Nf)] 20 mg PO HS 06/27/16 Famotidine [Pepcid AC] 20 mg PO DAILY 05/30/19 Methocarbamol [Robaxin -] 1,500 mg PO Q8H PRN #30 tablet 05/30/19 Anemia: Yes Asthma: No Cancer: No Cardiac Disorders: Yes (heart attack 2007, stent) CVA: No COPD: No CHF: No Dementia: No Diabetes: No GI Disorders: Yes (reflux) Disorders: No HTN: Yes Hypercholesterolemia: Yes Liver Disease: No Seizures: No Thyroid Disease: No - Surgical History Abdominal Surgery: No Appendectomy: No Cardiac Surgery: Yes (cardiac stents) Cholecystectomy: Yes Lung Surgery: No Neurologic Surgery: No Orthopedic Surgery: Yes (left shoulder arthroscopy 6 weeks ago) - Immunization History Immunization Up to Date: Yes - Psycho Social/Smoking Cessation Hx Smoking Status: No Smoking History: Never smoked Have you smoked in the past 12 months: No Number of Cigarettes Smoked Daily: 0 Information on smoking cessation initiated: No Hx Alcohol Use: No Drug/Substance Use Hx: No Substance Use Type: None Hx Substance Use Treatment: No Review of Systems - Review of Systems Neurological: Yes: Headache. No: Numbness, Paresthesia, Tingling, Weakness, Unsteady Gait, Ataxia, Dizziness *Physical Exam - Vital Signs Last Vital Signs Temp Pulse Resp BP Pulse Ox 98 F 76 16 150/70 100 07/14/19 11:56 07/14/19 11:56 07/14/19 11:56 07/14/19 11:56 07/14/19 11:56 - Physical Exam 07/14/19 13:14 GENERAL: The patient is awake, alert, and fully oriented, in no acute distress. HEAD: Normal with no signs of trauma. EYES: sclera anicteric, conjunctiva clear. ENT: Ears normal tympanic membranes normal oropharynx clear uvula midline NECK: Normal range of motion LUNGS: Breath sounds equal, clear to auscultation bilaterally. No wheezes, and no crackles. HEART: S1 and S2 without murmur, rub or gallop. ABDOMEN: Soft, nontender, normoactive bowel sounds. No guarding, no rebound. No masses. EXTREMITIES: Normal range of motion, no edema. No clubbing or cyanosis. No cords, erythema, or tenderness. NEUROLOGICAL: Cranial nerves II through XII grossly intact. Normal speech, normal gait. PSYCH: Normal mood, normal affect. SKIN: Warm, Dry, normal turgor, no rashes or lesions noted. Medical Decision Making - Medical Decision Making 07/14/19 13:14 Patient is feeling better. Will treat with Tylenol and have patient follow-up with primary care physician as well as neurology Discharge - Discharge Information Problems reviewed: Yes Clinical Impression/Diagnosis: Headache Condition: Stable Disposition: HOME - Admission No - Follow up/Referral Referrals: Kelvin Mckenna MD [Primary Care Provider] - Lenny Coronado MD [Staff Physician] - - Patient Discharge Instructions Additional Instructions: Tylenol as directed for headaches. Return to the emergency room for worsening symptoms. Without fail follow-up with your primary care physician as well as neurology in 2 to 3 days for further evaluation and treatment options. Avoid anti-inflammatories because of your anticoagulation medication and your hypertension. - Post Discharge Activity
[2019-07-14] MEDS ORDERED: ACETAMINOPHEN 500 MG TABLET (FP) ONE (13:17)
[2019-07-14 13:24] VITALS: BP 136/75
== END 2019-07-14 13:30 | disposition home or self-care (01) ==
LOC: JERFT 11:24
DX: R51 Headache (principal); I25.2 Old myocardial infarction; K21.9 Gastro-esophageal reflux disease without esophagitis; I10 Essential (primary) hypertension; Z95.5 Presence of coronary angioplasty implant and graft
CPT/HCPCS: 99281-25

== ENCOUNTER 2020-01-27 16:53 | Emergency (ER) | payer OTHER ==
--- NOTE | 2020-01-27 17:10 | PDOC ---
History of Present Illness - General Chief Complaint: Lightheaded Stated Complaint: LT KNEE LAC Time Seen by Provider: 01/27/20 17:09 Past History - Medical History Allergies/Adverse Reactions: Allergies Allergy/AdvReac Type Severity Reaction Status Date / Time No Known Allergies Allergy Verified 07/14/19 12:00 Home Medications: Ambulatory Orders Aspirin [ASA -] 81 mg PO DAILY 06/27/16 Lisinopril/Hydrochlorothiazide [Lisinopril-Hctz 10-12.5 mg Tab] 1 each PO DAILY 06/27/16 Metoprolol Succinate [Toprol Xl -] 50 mg PO DAILY 06/27/16 Pravastatin Sodium [Pravachol (Nf)] 20 mg PO HS 06/27/16 Famotidine [Pepcid AC] 20 mg PO DAILY 05/30/19 Methocarbamol [Robaxin -] 1,500 mg PO Q8H PRN #30 tablet 05/30/19 Anemia: Yes Asthma: No Cancer: No Cardiac Disorders: Yes (heart attack 2007, stent) CVA: No COPD: No CHF: No Dementia: No Diabetes: No GI Disorders: Yes (reflux) Disorders: No HTN: Yes Hypercholesterolemia: Yes Liver Disease: No Seizures: No Thyroid Disease: No - Surgical History Abdominal Surgery: No Appendectomy: No Cardiac Surgery: Yes (cardiac stents) Cholecystectomy: Yes Lung Surgery: No Neurologic Surgery: No Orthopedic Surgery: Yes (left shoulder arthroscopy 6 weeks ago) - Immunization History Immunization Up to Date: Yes - Psycho-Social/Smoking History Smoking Status: No Smoking History: Never smoked Have you smoked in the past 12 months: No Number of Cigarettes Smoked Daily: 0
[2020-01-27 17:23] VITALS: BP 153/89; PULSE 78; TEMP 98.8; BMI 32.5
[2020-01-27] MEDS ORDERED: DIPHTH,PERTUSS(ACELL),TET 0.5 ML DISP.SYRIN IM ONE ×2 (17:47→17:53)
--- NOTE | 2020-01-27 17:48 | PDOC ---
History of Present Illness - General Chief Complaint: Injury Stated Complaint: LT KNEE LAC Time Seen by Provider: 01/27/20 17:09 History Source: Patient Exam Limitations: No Limitations Past History - Travel History Traveled outside of the country in the last 30 days: No Close contact w/someone who was outside of country & ill: No - Medical History Allergies/Adverse Reactions: Allergies Allergy/AdvReac Type Severity Reaction Status Date / Time No Known Allergies Allergy Verified 07/14/19 12:00 Home Medications: Ambulatory Orders Aspirin [ASA -] 81 mg PO DAILY 06/27/16 Lisinopril/Hydrochlorothiazide [Lisinopril-Hctz 10-12.5 mg Tab] 1 each PO DAILY 06/27/16 Metoprolol Succinate [Toprol Xl -] 50 mg PO DAILY 06/27/16 Pravastatin Sodium [Pravachol (Nf)] 20 mg PO HS 06/27/16 Famotidine [Pepcid AC] 20 mg PO DAILY 05/30/19 Methocarbamol [Robaxin -] 1,500 mg PO Q8H PRN #30 tablet 05/30/19 Anemia: Yes Asthma: No Cancer: No Cardiac Disorders: Yes (heart attack 2007, stent) CVA: No COPD: No CHF: No Dementia: No Diabetes: No GI Disorders: Yes (reflux) Disorders: No HTN: Yes Hypercholesterolemia: Yes Liver Disease: No Seizures: No Thyroid Disease: No - Surgical History Abdominal Surgery: No Appendectomy: No Cardiac Surgery: Yes (cardiac stents) Cholecystectomy: Yes Lung Surgery: No Neurologic Surgery: No Orthopedic Surgery: Yes (left shoulder arthroscopy 6 weeks ago) - Reproductive History Is Patient Now?: No - Immunization History Immunization Up to Date: Yes - Psycho-Social/Smoking History Smoking Status: No Smoking History: Never smoked Have you smoked in the past 12 months: No Number of Cigarettes Smoked Daily: 0 Information on smoking cessation initiated: No - Substance Abuse Hx (Audit-C & DAST Scrn) How often the patient has a drink containing alcohol: Never Score: In Men: 4 or > Positive; In Women: 3 or > Positive: 0 Screen Result (Pos requires Nsg. Audit-10AR): Negative In the last yr the pt used illegal drug/Rx for NonMed reason: No Score: Yes response is considered Positive: 0 Screen Result (Positive result requires Nsg. DAST-10): Negative Review of Systems - Review of Systems Able to Perform ROS?: Yes Comments:: 01/27/20 20:27 CONSTITUTIONAL: Absent: fever, chills, diaphoresis, generalized weakness, malaise, loss of appetite HEENT: Absent: rhinorrhea, nasal congestion, throat pain, throat swelling, difficulty swallowing, mouth swelling, ear pain, eye pain, visual Changes CARDIOVASCULAR: Absent: chest pain, loss of consciousness, palpitations, irregular heart rate, peripheral edema RESPIRATORY: Absent: cough, shortness of breath, dyspnea with exertion, orthopnea, wheezing, stridor, hemoptysis MUSCULOSKELETAL: Present: Left knee pain absent: myalgia, arthralgia, joint swelling SKIN: Present: Abrasion absent: rash, itching, pallor NEUROLOGIC: Absent: headache, focal weakness or paresthesias, dizziness, unsteady gait, seizure, mental status changes, bladder or bowel incontinence PSYCHIATRIC: Absent: anxiety, depression, suicidal or homicidal ideation, hallucinations. Is the patient limited Iranian proficient: No *Physical Exam - Vital Signs Last Vital Signs Temp Pulse Resp BP Pulse Ox 98.8 F 78 18 153/89 98 01/27/20 17:09 01/27/20 17:09 01/27/20 17:09 01/27/20 17:09 01/27/20 17:09 - Physical Exam 01/27/20 20:28 GENERAL: Well developed, well nourished. Awake and alert. No acute distress. HEENT: Normocephalic, atraumatic. PERRLA, EOMI. No conjunctival pallor. Sclera are non- icteric. Moist mucous membranes. Oropharynx is clear. MUSCULOSKELETAL Tenderness palpation of the left anterior knee with associated swelling. Negative anterior, posterior draw testing. Negative varus valgus stressing. Negative Inocencia's test of the left knee. Silver dime sized abrasion noted to the left knee, not actively bleeding normal range of motion at all joints. No bony deformities or tenderness. No CVA tenderness. EXTREMITIES: No cyanosis. No clubbing. No edema. No calf tenderness. SKIN: Warm and dry. Normal capillary refill. No rashes. No jaundice. NEUROLOGICAL: Alert, awake, appropriate. Cranial nerves 2-12 intact. No deficits to light touch and temperature in face, upper extremities and lower extremities. No motor deficits in the in face, upper extremities and lower extremities. Normoreflexic in the upper and lower extremities. Normal speech. Toes are down-going bilaterally. Gait is normal without ataxia. PSYCHIATRIC: Cooperative. Good eye contact. Appropriate mood and affect. Medical Decision Making - Medical Decision Making 01/27/20 20:29 The patient is a 54-year-old female who presents to the ER today after a slip and fall in her [employer]. She states that the floor was wet when she slipped and fell landing on her left knee. She notes that she has a cut to her left knee and that it is swollen and it hurts to walk. She denies hitting her head or losing consciousness. Denies numbness and tingling weakness the affected extremity. A/P: Left knee pain On exam patient has a swollen left knee with a possible effusion. Special testing for the knee is grossly normal Patient does have a silver dollar sized abrasion to the left knee. No obvious laceration. Unable to suture at this time. Nonstick dressing placed on the abrasion after being copiously cleaned with normal saline. Tetanus updated. X-ray shows no acute fractures. Likely trauma/swelling due to fall. Will refer to orthopedics for further management. Familia wrap placed for comfort. Discharge home with return precautions I discussed the physical exam findings, ancillary test results and final diagnoses with the patient. I answered all of the patient's questions. The patient was satisfied with the care received and felt comfortable with the discharge plan and treatment plan. The Patient agrees to follow up with the primary care physician/specialist within 24-72 hours. Return precautions were given. Discharge - Discharge Information Problems reviewed: Yes Clinical Impression/Diagnosis: Abrasion Knee pain, right Qualifiers: Chronicity: acute Qualified Code(s): M25.561 - Pain in right knee Condition: Stable Disposition: HOME - Admission No - Follow up/Referral Referrals: Kelvin Mckenna MD [Primary Care Provider] - - Patient Discharge Instructions Patient Printed Discharge Instructions: DI for Abrasion, DI for Knee Pain Additional Instructions: You were seen for your knee pain today. Your x-ray did not show any broken bones. Please keep your knee elevated to prevent swelling. Ice the area to help reduce the swelling as well. You may take Motrin 600 mg every 6 hours starting tomorrow morning to help with the pain. Weight-bear as tolerated. Your abrasion was cleaned and and wrapped. Leave the dressing on for 24 hours. After 24 hours please take the dressing off and let it dry in the air. Your tetanus shot was updated today. Follow-up with your primary care doctor and orthopedics within the week. Referrals have been provided. Return to the ER for any new or worsening symptoms. - Post Discharge Activity Work/Back to School Note: Back to Work
[2020-01-27] MEDS ORDERED: ACETAMINOPHEN 325 MG TABLET (FP) PO ONE (17:57)
[2020-01-27] MEDS ORDERED: ACETAMINOPHEN 500 MG TABLET (FP) ONE (18:01)
[2020-01-27] MEDS ORDERED: KETOROLAC TROMETHAMINE 60 MG/2 ML VIAL IM ONE (18:51)
[2020-01-27] MEDS ORDERED: KETOROLAC TROMETHAMINE 30 MG/1 ML VIAL ONE (18:57)
== END 2020-01-27 19:02 | disposition home or self-care (01) ==
LOC: JER 16:53
PROC: 3E0233Z Introduction of Anti-inflammatory into Muscle, Percutaneous Approach (ICD-10-PCS; principal; 2020-01-27)
DX: M25.561 Pain in right knee (principal)
CPT/HCPCS: 73562-TC-LT-FY; 90715; 99284-25

== ENCOUNTER 2020-02-06 10:23 | Observation (INO) | payer OTHER ==
[2020-02-06 10:28] VITALS: BMI 32.5
[2020-02-06] MEDS ORDERED: ASPIRIN 81 MG CHEWABLE TABLETS PO ONE (11:06)
--- NOTE | 2020-02-06 11:08 | PDOC ---
History of Present Illness - General Chief Complaint: Palpitations Stated Complaint: CHEST DISCOMFORT - History of Present Illness Initial Comments: The pt is a 54F w/ a history of HTN, CAD, previous [place] s/p stent x2 who presents for evaluation of 1 day of palpitations and back pain. The pt reports the back pain is achy, constant/improving, non-radiating, similar to the pain she had with her previous DE, and not exacerbated or alleviated by anything she can identify. Pt reports she woke with palpitations (which happens frequently with her) and then later noticed the back pain. The pain is non-exertional and non- positional. Endorses generalized weakness. She denies fevers/chills, vision changes, MICHELLE, cough, sick contacts, N/V/C/D, abdominal pain, dysuria, hematuria, blood in her stool, or changes in strength/sensation. 02/06/20 11:07 Past History - Medical History Allergies/Adverse Reactions: Allergies Allergy/AdvReac Type Severity Reaction Status Date / Time No Known Allergies Allergy Verified 07/14/19 12:00 Home Medications: Ambulatory Orders Lisinopril/Hydrochlorothiazide [Lisinopril-Hctz 10-12.5 mg Tab] 1 each PO DAILY 06/27/16 Pravastatin Sodium [Pravachol (Nf)] 40 mg PO HS 06/27/16 Famotidine [Pepcid AC] 20 mg PO DAILY 05/30/19 Apixaban [Eliquis] 5 mg PO BID 02/06/20 Anemia: Yes Asthma: No Cancer: No Cardiac Disorders: Yes (heart attack 2007, stent) CVA: No COPD: No CHF: No Dementia: No Diabetes: No GI Disorders: Yes (reflux) Disorders: No HTN: Yes Hypercholesterolemia: Yes Liver Disease: No Seizures: No Thyroid Disease: No - Surgical History Abdominal Surgery: No Appendectomy: No Cardiac Surgery: Yes (cardiac stents) Cholecystectomy: Yes Lung Surgery: No Neurologic Surgery: No Orthopedic Surgery: Yes (left shoulder arthroscopy 6 weeks ago) - Immunization History Immunization Up to Date: Yes - Psycho-Social/Smoking History Smoking Status: No Smoking History: Never smoked Have you smoked in the past 12 months: No Number of Cigarettes Smoked Daily: 0 - Substance Abuse Hx (Audit-C & DAST Scrn) How often the patient has a drink containing alcohol: Never Score: In Men: 4 or > Positive; In Women: 3 or > Positive: 0 Screen Result (Pos requires Nsg. Audit-10AR): Negative Review of Systems - Review of Systems Able to Perform ROS?: Yes Comments:: GENERAL/CONSTITUTIONAL: +weakness; No fever or chills HEAD, EYES, EARS, NOSE AND THROAT: No change in vision. No change in hearing. No sore throat CARDIOVASCULAR: No shortness of breath RESPIRATORY: Denies cough, hemoptysis GASTROINTESTINAL: No nausea, vomiting, diarrhea or constipation GENITOURINARY: No dysuria, frequency, or change in urination MUSCULOSKELETAL: No joint or muscle swelling or pain. No neck pain SKIN: No rash NEUROLOGIC: No headache, vertigo, loss of consciousness, or change in strength/sensation ENDOCRINE: No increased thirst. No abnormal weight change HEMATOLOGIC/LYMPHATIC: No anemia, easy bleeding, or history of blood clots ALLERGIC/IMMUNOLOGIC: No hives or skin allergy 02/06/20 15:27 Is the patient limited Icelandic proficient: No *Physical Exam - Vital Signs Last Vital Signs Temp Pulse Resp BP Pulse Ox 97.4 F L 106 H 18 149/88 100 02/06/20 10:25 02/06/20 10:25 02/06/20 10:25 02/06/20 10:25 02/06/20 10:25 - Physical Exam GENERAL: Awake, alert, and oriented to person/place/time, in no acute distress HEAD: No signs of trauma, normocephalic, atraumatic EYES: PERRLA, EOMI, sclera anicteric, conjunctiva clear ENT: Hearing grossly normal, nares patent, oropharynx clear without exudates. No uvular deviation. Moist mucosa LUNGS: No distress, speaks in full sentences, clear to auscultation bilaterally HEART: Regular rate and rhythm, normal S1 and S2, no murmurs appreciated, peripheral pulses normal and equal bilaterally ABDOMEN: Soft, nontender, normoactive bowel sounds. No guarding, no rebound EXTREMITIES: Normal inspection, Normal range of motion, no edema. No clubbing or cyanosis NEUROLOGICAL: Cranial nerves II through XII grossly intact. Normal speech, normal gait, no focal sensorimotor deficits SKIN: Warm, Dry 02/06/20 15:28 ED Treatment Course - LABORATORY CBC & Chemistry Diagram: 02/06/20 11:11 02/06/20 11:11 Medical Decision Making - Medical Decision Making The pt is a 54F w/ a history of HTN, CAD, previous [place] s/p stent x2 who presents for evaluation of 1 day of palpitations and back pain. Ddx: ACS, PNA, not likely AD, not likely PNX, no dysrhythmia seen on monitor or ECG ED Course Labs sent ECG CXR Trop I neg Lytes overall unremarkable No SUSY No leukocytosis No anemia LFTs unremarkable CXR w/o acute pathology ECG w/ NSR; HR 92; QTc 420; left axis deviation; no acute ischemic changes 02/06/20 12:35 Plan for admission to Tele Obs for ACS Pt signed out to [facility] Admitting 02/06/20 15:29 Discharge - Discharge Information Problems reviewed: Yes Clinical Impression/Diagnosis: ACS (acute coronary syndrome), Palpitations Condition: Stable - Admission Yes - Follow up/Referral - Patient Discharge Instructions - Post Discharge Activity
[2020-02-06] MEDS ORDERED: ASPIRIN 81 MG CHEWABLE TABLETS ONE (11:10)
[2020-02-06 11:35] LABS: BASO % 0.7 % (0-2.0); EOS % 0.5 % (0-4.5); HEMATOCRIT 41.2 % (32.4-45.2); HEMOGLOBIN 14.1 GM/dL (10.7-15.3); LYMPH % 28.3 % (8-40); MCH 29.5 pg (25.7-33.7); MCHC 34.2 g/dl (32.0-36.0); MEAN CELL VOLUME 86.2 fl (80-96); MEAN PLT VOLUME 8.1 fl (7.5-11.1); MONO % 8.8 % (3.8-10.2); NEUT % 61.7 % (42.8-82.8); PLATELET COUNT 263 K/MM3 (134-434); RBC 4.78 M/mm3 (3.60-5.2); RDW 13.4 % (11.6-15.6); WHITE BLOOD COUNT 9.1 K/mm3 (4.0-10.0)
[2020-02-06 12:10] LABS: ALBUMIN 4.1 g/dl (3.4-5.0); ALK PHOS 81 U/L (45-117); ANION GAP 9 MMOL/L (8-16); BLOOD UREA NITROGEN 17.9 mg/dL (7-18); CALCIUM 9.5 mg/dL (8.5-10.1); CHLORIDE 103 mmol/L (98-107); CO2 29 mmol/L (21-32); CREATININE 0.8 mg/dL (0.55-1.3); GLUCOSE,RANDOM 123 mg/dL (74-106); POTASSIUM 3.8 mmol/L (3.5-5.1); SGOT/AST 17 U/L (15-37); SGPT/ALT 36 U/L (13-61); SODIUM 141 mmol/L (136-145); TOT PROT 7.6 g/dl (6.4-8.2)
[2020-02-06 12:19] LABS: BILIRUBIN,TOTAL 0.5 mg/dL (0.2-1)
[2020-02-06] MEDS ORDERED: METHOCARBAMOL 750 MG TABLET PO PRN (12:56)
[2020-02-06] MEDS ORDERED: METHOCARBAMOL 500 MG TABLET PO PRN (13:04)
--- NOTE | 2020-02-06 13:12 | HP ---
Admitting History and Physical - Primary Care Physician PCP: Kelvin Mckenna - Admission Chief Complaint: Chest pain palpitation History of Present Illness: 54-year-old female history of hypertension, dyslipidemia, paroxysmal atrial fibrillation diagnosed in 2014 CAD status post a stent in 2007 somewhere in the [place], follow-up with [facility] underwent echocardiogram on February 02, 2020, today presents with intermittent palpitation with left sided posterior chest wall pain, as per patient she has intermittent palpitation to daily in the morning had an episode of palpitation that lasted around 1 hour developed some left sided chest pain, that eased out once tachycardia resolved, not associated shortness of breath, dizziness, any motor or sensory weakness no complaint of fever chills nausea vomiting unable to ED hemodynamically stable, normal EKG and normal troponin I considering back pain is being admitted for further evaluation and management to rule out ACS. As per patient recently metoprolol XL has been switched to some other antiarrhythmic medication that patient does not know says there is no change in frequency of intermittent palpitation. 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[place] [facility] History of Recent Travel: No Home Medications - Allergies Allergies/Adverse Reactions: Allergies Allergy/AdvReac Type Severity Reaction Status Date / Time No Known Allergies Allergy Verified 07/14/19 12:00 - Home Medications Home Medications: Ambulatory Orders Lisinopril/Hydrochlorothiazide [Lisinopril-Hctz 10-12.5 mg Tab] 1 each PO DAILY 06/27/16 Pravastatin Sodium [Pravachol (Nf)] 40 mg PO HS 06/27/16 Famotidine [Pepcid AC] 20 mg PO DAILY 05/30/19 Apixaban [Eliquis] 5 mg PO BID 02/06/20 Review of Systems - Review of Systems Constitutional: denies: Chills, Diaphoresis, Fever, Lethargy Eyes: denies: Blind Spots, Blurred Vision, Double Vision, Eye Pain HENT: denies: Difficult Swallowing, Ear Discharge, Ear Pain Neck: denies: Decreased ROM, Lumps, Pain on Movement, Stiffness Cardiovascular: reports: Chest Pain, Palpitations. denies: Edema, Shortness of Breath Respiratory: denies: Cough, Exercise Intolerance, Hemoptysis, Orthopnea Gastrointestinal: denies: Abdominal Pain, Bloating, Constipation, Diarrhea Genitourinary: denies: Burning, Discharge, Dysuria, Flank Pain, Frequency, Incontinence, Lesions, Menses Musculoskeletal: reports: Back Pain. denies: Crepitus, Decreased ROM, Extremity Pain Integumentary: denies: Blister, Bruising, Change in Color Endocrine: denies: Excessive Sweating, Flushing, Increased Hunger Physical Examination Vital Signs: Vital Signs Temperature 97.4 F L 02/06/20 10:25 Pulse Rate 80 02/06/20 11:17 Respiratory Rate 17 02/06/20 11:17 Blood Pressure 142/87 02/06/20 11:17 O2 Sat by Pulse Oximetry (%) 100 02/06/20 11:17 General: Middle-aged woman, comfortable, not in distress HEENT mucous membranes moist, no anemia, no jaundice, PERRLA, no nystagmus Neck: No JVD, supple, no bruit, thyroid palpably normal, normal carotid pulsations. Chest: Nontender, clear to auscultation bilaterally CVS: S1-S2 regular no murmur/gallop/rub Abdomen: Nondistended, soft, bowel sounds present. Extremities: No edema., No Calf tenderness, pulses present [employer]: AO X3 , no gross motor sensory deficit Labs: CBC,CMP WBC 9.1 K/mm3 (4.0-10.0) 02/06/20 11:11 RBC 4.78 M/mm3 (3.60-5.2) 02/06/20 11:11 Hgb 14.1 GM/dL (10.7-15.3) 02/06/20 11:11 Hct 41.2 % (32.4-45.2) 02/06/20 11:11 MCV 86.2 fl (80-96) 02/06/20 11:11 MCH 29.5 pg (25.7-33.7) 02/06/20 11:11 MCHC 34.2 g/dl (32.0-36.0) 02/06/20 11:11 RDW 13.4 % (11.6-15.6) 02/06/20 11:11 Plt Count 263 K/MM3 (134-434) D 02/06/20 11:11 MPV 8.1 fl (7.5-11.1) 02/06/20 11:11 Absolute Neuts (auto) 5.6 K/mm3 (1.5-8.0) 02/06/20 11:11 Neutrophils % 61.7 % (42.8-82.8) 02/06/20 11:11 Lymphocytes % 28.3 % (8-40) 02/06/20 11:11 Monocytes % 8.8 % (3.8-10.2) 02/06/20 11:11 Eosinophils % 0.5 % (0-4.5) 02/06/20 11:11 Basophils % 0.7 % (0-2.0) 02/06/20 11:11 Nucleated RBC % 0 % (0-0) 02/06/20 11:11 Sodium 141 mmol/L (136-145) 02/06/20 11:11 Potassium 3.8 mmol/L (3.5-5.1) 02/06/20 11:11 Chloride 103 mmol/L (98-107) 02/06/20 11:11 Carbon Dioxide 29 mmol/L (21-32) 02/06/20 11:11 Anion Gap 9 MMOL/L (8-16) 02/06/20 11:11 BUN 17.9 mg/dL (7-18) 02/06/20 11:11 Creatinine 0.8 mg/dL (0.55-1.3) 02/06/20 11:11 Est GFR (CKD-EPI)AfAm 95.52 02/06/20 11:11 Est GFR (CKD-EPI)NonAf 82.42 02/06/20 11:11 Random Glucose 123 mg/dL (74-106) H 02/06/20 11:11 Calcium 9.5 mg/dL (8.5-10.1) 02/06/20 11:11 Total Bilirubin 0.5 mg/dL (0.2-1) 02/06/20 11:11 AST 17 U/L (15-37) 02/06/20 11:11 ALT 36 U/L (13-61) 02/06/20 11:11 Alkaline Phosphatase 81 U/L (45-117) 02/06/20 11:11 Troponin I < 0.02 ng/ml (0.00-0.05) 02/06/20 11:11 Total Protein 7.6 g/dl (6.4-8.2) 02/06/20 11:11 Albumin 4.1 g/dl (3.4-5.0) 02/06/20 11:11 Imaging - Results X-ray: Report Reviewed (Normal no acute changes) EKG: Report Reviewed (Normal sinus rhythm baseline no acute ST-T changes) Problem List - Problems (1) Chest pain Assessment/Plan: Patient has history of hypertension, hypercholesterolemia and history of CAD status post PCI consisting expected with admitted to rule out ACS chest pain is atypical most likely tachycardia induced due to episode of A. fib with RVR, continue serial cardiac enzyme, recent echo is normal, follow-up cardiology recommendations, telemetry monitoring, continue metoprolol XL 50 mg, aspirin, apixaban, pravastatin, follow-up TSH. Problems reviewed: Yes Code(s): R07.9 - CHEST PAIN, UNSPECIFIED (2) Palpitation Assessment/Plan: History of proximal atrial fibrillation diagnosed in 2014 on metoprolol and apixaban will continue same, follow-up surveillance monitor and subsequent management as per cardiology input. Problems reviewed: Yes Code(s): R00.2 - PALPITATIONS (3) Hypertension Assessment/Plan: Development controlled continue all home medication lisinopril and hydrochlorothiazide. Patient is on metoprolol XL 50 mg for A. fib Problems reviewed: Yes Code(s): I10 - ESSENTIAL (PRIMARY) HYPERTENSION (4) CAD (coronary artery disease) Assessment/Plan: Status post PCI continue aspirin, beta-blockers, statin serial cardiac exam and cardiology input monitor on surveillance monitor. Problems reviewed: Yes Code(s): I25.10 - ATHSCL HEART DISEASE OF [place] CORONARY ARTERY W/O ANG PCTRS (5) Back strain Assessment/Plan: Continue methocarbamol Problems reviewed: Yes Code(s): S39.012A - STRAIN OF MUSCLE, FASCIA AND TENDON OF LOWER BACK, INIT (6) Paroxysmal atrial fibrillation Assessment/Plan: History of present atrial fibrillation, will continue apixaban 5 mg twice daily, recent echo on February 02, 2020 is normal, monitor on surveillance monitor, considering chest pain history of CAD will resume metoprolol XL 50 mg daily Problems reviewed: Yes Code(s): I48.0 - PAROXYSMAL ATRIAL FIBRILLATION Assessment/Plan Active Medications Apixaban (Eliquis -) 5 mg PO BID [facility] Aspirin (Asa -) 81 mg PO DAILY [facility] Atorvastatin Calcium (Lipitor -) 10 mg PO HS [facility] Famotidine (Pepcid -) 20 mg PO DAILY [facility] Hydrochlorothiazide (Hctz -) 12.5 mg PO DAILY [facility] Lisinopril (Prinivil) 10 mg PO DAILY [facility] Methocarbamol (Robaxin -) 1,500 mg PO Q8H PRN PRN Reason: BACK PAIN Metoprolol Succinate (Toprol Xl -) 50 mg PO DAILY [facility]
--- NOTE | 2020-02-06 16:29 | PDOC ---
Documentation entered by Patti Franco SCRIBE, acting as scribe for Jayme Jones MD. Jayme Jones MD: This documentation has been prepared by the Salvador leiva Ana, SCRIBE, under my direction and personally reviewed by me in its entirety. I confirm that the documentation accurately reflects all work, treatment, procedures, and medical decision making performed by me. Attending Attestation - Resident Resident Name: Michael Monahan - ED Attending Attestation I have performed the following: I have examined & evaluated the patient, The case was reviewed & discussed with the resident, I agree w/resident's findings & plan, Exceptions are as noted - HPI HPI: 02/06/20 10:47 Patient is a 54 year old female with a significant past medical history of hypertension, CAD, previous [place] s/p stent x2, who presents to the ED with palpitations and back pain x1 day. Patient stated she woke up this morning with chest palpitations which has happened before but said the back pain is new. Patient describes her back pain as "achy", constant, non-radiating, and similar to pain from previous [place]. Patient endorses: generalized weakness Patient denies: changes in strength/sensation, fever, chills, headache, nausea, any vision changes, vomiting, cough, abdominal pain, dysuria, hematuria, diarrhea, constipation, blood in stool, contact with sick people, or any other related symptoms. Allergies: NKDA Discharge - Discharge Information Clinical Impression/Diagnosis: ACS (acute coronary syndrome), Palpitations Condition: Stable - Follow up/Referral - Patient Discharge Instructions - Post Discharge Activity
--- NOTE | 2020-02-06 17:46 | EKG ---
Test Reason : Blood Pressure : / mmHG Vent. Rate : 068 BPM Atrial Rate : 068 BPM P-R Int : 208 ms QRS Dur : 092 ms QT Int : 402 ms P-R-T Axes : 026 -16 008 degrees QTc Int : 427 ms NORMAL SINUS RHYTHM WITH 1ST DEGREE A-V BLOCK LEFT ATRIAL ENLARGEMENT MODERATE VOLTAGE CRITERIA FOR LVH, MAY BE NORMAL VARIANT ABNORMAL ECG Confirmed by MD GENE, MELISSA ([id number]) on 02/06/2020 5:46:12 PM Referred By: Confirmed By:MELISSA MILLS MD
--- NOTE | 2020-02-06 17:52 | EKG ---
Test Reason : Blood Pressure : / mmHG Vent. Rate : 092 BPM Atrial Rate : 092 BPM P-R Int : 162 ms QRS Dur : 078 ms QT Int : 340 ms P-R-T Axes : 028 -20 019 degrees QTc Int : 420 ms NORMAL SINUS RHYTHM LEFT ATRIAL ENLARGEMENT LEFT VENTRICULAR HYPERTROPHY ABNORMAL ECG WHEN COMPARED WITH ECG OF 06-DEC-2017 06:08, NO SIGNIFICANT CHANGE WAS FOUND Confirmed by MD GENE, MELISSA ([id number]) on 02/06/2020 5:51:25 PM Referred By: Confirmed By:MELISSA MILLS MD
[2020-02-06] MEDS ORDERED: APIXABAN 5 MG TABLET ONE ×2 (21:40→21:42)
[2020-02-06] MEDS ORDERED: ATORVASTATIN CA 10 MG TABLET (FP) ONE (21:40)
[2020-02-06] MEDS: APIXABAN 5 MG TABLET PO SCH (21:43)
[2020-02-06] MEDS ORDERED: ATORVASTATIN CA 10 MG TABLET (FP) PO SCH ×3 (22:00→23:35)
[2020-02-06] MEDS ORDERED: LISINOPRIL 5 MG TABLET (FP) ONE (23:32)
[2020-02-06] MEDS: LISINOPRIL 10 MG TABLET (FP) PO SCH (23:38)
[2020-02-07 08:27] LABS: BASO % 0.6 % (0-2.0); EOS % 0.7 % (0-4.5); HEMATOCRIT 41.8 % (32.4-45.2); HEMOGLOBIN 14.2 GM/dL (10.7-15.3); MCH 29.5 pg (25.7-33.7); MCHC 33.8 g/dl (32.0-36.0); MEAN CELL VOLUME 87.1 fl (80-96); MEAN PLT VOLUME 8.1 fl (7.5-11.1); MONO % 8.1 % (3.8-10.2); NEUT % 62.6 % (42.8-82.8); PLATELET COUNT 240 K/MM3 (134-434); RDW 13.4 % (11.6-15.6); WHITE BLOOD COUNT 10.1 K/mm3 (4.0-10.0)
[2020-02-07 08:47] LABS: URINE APPEARANCE Clear; URINE BILIRUBIN Negative (NEGATIVE); URINE COLOR Yellow; URINE GLUCOSE (UA) Negative (NEGATIVE); URINE KETONE Trace (NEGATIVE); URINE LEUK ESTERASE Trace (NEGATIVE); URINE NITRITE Negative (NEGATIVE); URINE PROTEIN Negative (NEGATIVE); URINE UROBILINOGEN 0.2 mg/dL (0.2-1.0)
[2020-02-07 08:49] LABS: ANION GAP 7 MMOL/L (8-16); BLOOD UREA NITROGEN 19.8 mg/dL (7-18); CALCIUM 9.3 mg/dL (8.5-10.1); CHLORIDE 106 mmol/L (98-107); CHOLESTEROL 224 mg/dL (50-200); CO2 27 mmol/L (21-32); CREATININE 0.7 mg/dL (0.55-1.3); GLUCOSE,RANDOM 101 mg/dL (74-106); HDL CHOLESTEROL 59 mg/dL (40-60); LDL CHOLESTEROL (ONLY SJRH) 134 mg/dL (5-100); POTASSIUM 4.2 mmol/L (3.5-5.1); SODIUM 140 mmol/L (136-145); TRIGLYCERIDES 266 mg/dL (0-150)
[2020-02-07] MEDS ORDERED: ASPIRIN 81 MG CHEWABLE TABLETS ONE (09:15)
[2020-02-07] MEDS ORDERED: HYDROCHLOROTHIAZIDE 25 MG TABLET (FP) ONE (09:15)
[2020-02-07] MEDS ORDERED: APIXABAN 5 MG TABLET ONE (09:15)
[2020-02-07] MEDS ORDERED: FAMOTIDINE 20 MG TABLET ONE (09:16)
[2020-02-07] MEDS: APIXABAN 5 MG TABLET PO SCH ×2 (09:30→21:28)
[2020-02-07] MEDS: ASPIRIN 81 MG CHEWABLE TABLETS PO SCH (09:30)
[2020-02-07] MEDS: FAMOTIDINE 20 MG TABLET PO SCH (09:31)
[2020-02-07] MEDS: HYDROCHLOROTHIAZIDE 12.5 MG CAPSULE (FP) PO SCH (09:31)
[2020-02-07] MEDS ORDERED: LISINOPRIL 10 MG TABLET (FP) PO SCH (10:00)
[2020-02-07] MEDS ORDERED: PATIENT'S OWN MEDICATION (NON-FORMULARY) (Lisinopril/Hydrochlorothiazide [Lisinopril-Hctz PO SCH (10:00)
[2020-02-07 10:56] LABS: EPI CELLS 12.5 /uL (0-25.1); HYALINE CASTS 0.51 /uL (0-3.1); URINE BACTERIA 1100.2 /uL (0-1359); URINE RBC 30.8 /uL (0-23.9); URINE WBC 42.5 /uL (0-25.8)
[2020-02-07] MEDS ORDERED: ACETAMINOPHEN 325 MG TABLET (FP) ONE (13:04)
--- NOTE | 2020-02-07 13:50 | CON.CARD ---
Cardiology Consult (text) - Consultation Consultation Note: cc: palps, sob hpi: 54 f hx cad s/p mi/pci 2007, htn, hld, pafib here with palps, sob. Sxs began yesterday at rest. [place] heart skipping and sob. Some back pain as well, seemed unrelated to others. No sig cp, no dizzy loc pnd orthopnea le edema. pmh: per hpi psh: pci social: no tob fam: no premature cad, scd ros: per hpi; all others nl meds: Ambulatory Orders Lisinopril/Hydrochlorothiazide [Lisinopril-Hctz 10-12.5 mg Tab] 1 each PO DAILY 06/27/16 Pravastatin Sodium [Pravachol (Nf)] 40 mg PO HS 06/27/16 Famotidine [Pepcid AC] 20 mg PO DAILY 05/30/19 Apixaban [Eliquis] 5 mg PO BID 02/06/20 Diltiazem HCl [Diltiazem ER] 120 mg PO DAILY 02/07/20 pe: Vital Signs Period Temp Pulse Resp BP Sys/Perez Pulse Ox Last 24 Hr 98.0 F-98.1 F 60-82 06-11 108-140/70-99 99-100 nad no jvd rrr s1s2 no mrg cta bl nl eff aao3 no le e/c/c abd nt nd pos bs no jaundice diaphoresis pos dp pt no carotid bruits Laboratory Last Values WBC 10.1 K/mm3 (4.0-10.0) H 02/07/20 07:57 RBC 4.80 M/mm3 (3.60-5.2) 02/07/20 07:57 Hgb 14.2 GM/dL (10.7-15.3) 02/07/20 07:57 Hct 41.8 % (32.4-45.2) 02/07/20 07:57 MCV 87.1 fl (80-96) 02/07/20 07:57 MCH 29.5 pg (25.7-33.7) 02/07/20 07:57 MCHC 33.8 g/dl (32.0-36.0) 02/07/20 07:57 RDW 13.4 % (11.6-15.6) 02/07/20 07:57 Plt Count 240 K/MM3 (134-434) 02/07/20 07:57 MPV 8.1 fl (7.5-11.1) 02/07/20 07:57 Absolute Neuts (auto) 6.3 K/mm3 (1.5-8.0) 02/07/20 07:57 Neutrophils % 62.6 % (42.8-82.8) 02/07/20 07:57 Lymphocytes % 28.0 % (8-40) 02/07/20 07:57 Monocytes % 8.1 % (3.8-10.2) 02/07/20 07:57 Eosinophils % 0.7 % (0-4.5) 02/07/20 07:57 Basophils % 0.6 % (0-2.0) 02/07/20 07:57 Nucleated RBC % 0 % (0-0) 02/07/20 07:57 Sodium 140 mmol/L (136-145) 02/07/20 07:57 Potassium 4.2 mmol/L (3.5-5.1) 02/07/20 07:57 Chloride 106 mmol/L (98-107) 02/07/20 07:57 Carbon Dioxide 27 mmol/L (21-32) 02/07/20 07:57 Anion Gap 7 MMOL/L (8-16) L 02/07/20 07:57 BUN 19.8 mg/dL (7-18) H 02/07/20 07:57 Creatinine 0.7 mg/dL (0.55-1.3) 02/07/20 07:57 Est GFR (CKD-EPI)AfAm 112.26 02/07/20 07:57 Est GFR (CKD-EPI)NonAf 96.86 02/07/20 07:57 Random Glucose 101 mg/dL (74-106) 02/07/20 07:57 Hemoglobin A1c % 6.2 % (4.2-6.3) 02/07/20 07:57 Calcium 9.3 mg/dL (8.5-10.1) 02/07/20 07:57 Total Bilirubin 0.5 mg/dL (0.2-1) 02/06/20 11:11 AST 17 U/L (15-37) 02/06/20 11:11 ALT 36 U/L (13-61) 02/06/20 11:11 Alkaline Phosphatase 81 U/L (45-117) 02/06/20 11:11 Creatine Kinase 120 U/L (26-192) 02/07/20 07:57 Troponin I < 0.02 ng/ml (0.00-0.05) 02/07/20 07:57 Total Protein 7.6 g/dl (6.4-8.2) 02/06/20 11:11 Albumin 4.1 g/dl (3.4-5.0) 02/06/20 11:11 Triglycerides 266 mg/dL (0-150) H 02/07/20 07:57 Cholesterol 224 mg/dL (50-200) H 02/07/20 07:57 Total LDL Cholesterol 134 mg/dL (5-100) H 02/07/20 07:57 HDL Cholesterol 59 mg/dL (40-60) 02/07/20 07:57 TSH 2.70 uIU/ml (0.358-3.74) 02/07/20 07:57 Urine Color Yellow 02/06/20 08:17 Urine Appearance Clear 02/06/20 08:17 Urine pH 6.0 (5.0-8.0) 02/06/20 08:17 Ur Specific [place] 1.025 (1.010-1.035) 02/06/20 08:17 Urine Protein Negative (NEGATIVE) 02/06/20 08:17 Urine Glucose (UA) Negative (NEGATIVE) 02/06/20 08:17 Urine Ketones Trace (NEGATIVE) 02/06/20 08:17 Urine Blood Negative (NEGATIVE) 02/06/20 08:17 Urine Nitrite Negative (NEGATIVE) 02/06/20 08:17 Urine Bilirubin Negative (NEGATIVE) 02/06/20 08:17 Urine Urobilinogen 0.2 mg/dL (0.2-1.0) 02/06/20 08:17 Ur Leukocyte Esterase Trace (NEGATIVE) 02/06/20 08:17 Urine WBC (Auto) 42.5 /uL (0-25.8) 02/06/20 08:17 Urine RBC (Auto) 30.8 /uL (0-23.9) 02/06/20 08:17 Urine Casts (Auto) 0.51 /uL (0-3.1) 02/06/20 08:17 U Epithel Cells (Auto) 12.5 /uL (0-25.1) 02/06/20 08:17 Urine Bacteria (Auto) 1100.2 /uL (0-1359) 02/06/20 08:17 ecg: sr, nl intervals, no ischemic changes echo 01/2020: nl lv/rv, no sig valve path tele: sr cxr: nl a/p: 54 f hx cad s/p mi/pci 2007, htn, hld, pafib here with palps, sob. palps, pafib: -prior event monitor had shown episodes of afib. she had been maintained on toprol but recently palps have been worse so had changed toprol to dilt 120 bid but today reports still with episodic palps. Will increase dilt to 180 bid, monitor on tele. -cont ac with naye cad: -currently with sob when having palps. no signs chf or acs. Recent echo unremarkable. Will eval further with nuclear stress test. -cont statin, asa htn: -cont home meds hld: -cont statin
--- NOTE | 2020-02-07 16:43 | PN ---
Teaching Attending Note Name of Resident: Yaritza Zhao ATTENDING PHYSICIAN STATEMENT I saw and evaluated the patient. I reviewed the resident's note and discussed the case with the resident. I agree with the resident's findings and plan as documented. SUBJECTIVE: Patient has no new complains. Denies having any palpitations at this time. OBJECTIVE: Vital Signs Temperature 98.1 F 02/07/20 06:43 Pulse Rate 74 02/07/20 14:21 Respiratory Rate 20 02/07/20 14:21 Blood Pressure 135/89 02/07/20 14:21 O2 Sat by Pulse Oximetry (%) 100 02/07/20 14:21 PE: per resident's note irregularly irregular rate controlled CBCD WBC 10.1 K/mm3 (4.0-10.0) H 02/07/20 07:57 RBC 4.80 M/mm3 (3.60-5.2) 02/07/20 07:57 Hgb 14.2 GM/dL (10.7-15.3) 02/07/20 07:57 Hct 41.8 % (32.4-45.2) 02/07/20 07:57 MCV 87.1 fl (80-96) 02/07/20 07:57 MCHC 33.8 g/dl (32.0-36.0) 02/07/20 07:57 RDW 13.4 % (11.6-15.6) 02/07/20 07:57 Plt Count 240 K/MM3 (134-434) 02/07/20 07:57 MPV 8.1 fl (7.5-11.1) 02/07/20 07:57 CMP Sodium 140 mmol/L (136-145) 02/07/20 07:57 Potassium 4.2 mmol/L (3.5-5.1) 02/07/20 07:57 Chloride 106 mmol/L (98-107) 02/07/20 07:57 Carbon Dioxide 27 mmol/L (21-32) 02/07/20 07:57 Anion Gap 7 MMOL/L (8-16) L 02/07/20 07:57 BUN 19.8 mg/dL (7-18) H 02/07/20 07:57 Creatinine 0.7 mg/dL (0.55-1.3) 02/07/20 07:57 Random Glucose 101 mg/dL (74-106) 02/07/20 07:57 Calcium 9.3 mg/dL (8.5-10.1) 02/07/20 07:57 Total Bilirubin 0.5 mg/dL (0.2-1) 02/06/20 11:11 AST 17 U/L (15-37) 02/06/20 11:11 ALT 36 U/L (13-61) 02/06/20 11:11 Alkaline Phosphatase 81 U/L (45-117) 02/06/20 11:11 Total Protein 7.6 g/dl (6.4-8.2) 02/06/20 11:11 Albumin 4.1 g/dl (3.4-5.0) 02/06/20 11:11 CARDIAC ENZYMES Creatine Kinase 120 U/L (26-192) 02/07/20 07:57 Troponin I < 0.02 ng/ml (0.00-0.05) 02/07/20 07:57 Current Medications Generic Name Dose Route Start Last Admin Trade Name Freq PRN Reason Stop Dose Admin Apixaban 5 mg 02/06/20 22:00 02/07/20 09:30 Eliquis - PO 5 mg BID LACEY Administration Aspirin 81 mg 02/07/20 10:00 02/07/20 09:30 Asa - PO 81 mg DAILY LACEY Administration Atorvastatin Calcium 40 mg 02/07/20 09:51 Lipitor - PO HS LACEY Diltiazem HCl 180 mg 02/07/20 22:00 Cardizem Cd - PO BID LACEY Famotidine 20 mg 02/07/20 10:00 02/07/20 09:31 Pepcid - PO 20 mg DAILY LACEY Administration Hydrochlorothiazide 12.5 mg 02/07/20 10:00 02/07/20 09:31 Hctz - PO 12.5 mg DAILY LACEY Administration Lisinopril 10 mg 02/06/20 23:45 02/06/20 23:38 Prinivil PO 10 mg HS LACEY Administration Methocarbamol 1,500 mg 02/06/20 13:04 Robaxin - PO Q8H PRN BACK PAIN Home Medications Medication Instructions Recorded Lisinopril/Hydrochlorothiazide 1 each PO DAILY 06/27/16 [Lisinopril-Hctz 10-12.5 mg Tab] Pravastatin Sodium [Pravachol (Nf)] 40 mg PO HS 06/27/16 Famotidine [Pepcid AC] 20 mg PO DAILY 05/30/19 Apixaban [Eliquis] 5 mg PO BID 02/06/20 Diltiazem HCl [Diltiazem ER] 120 mg PO DAILY 02/07/20 echo 01/2020: nl lv/rv, no sig valve path CXR: no acute pathology ASSESSMENT AND PLAN: This patient is a 54yof with PMHx of hypertension, dyslipidemia, paroxysmal atrial fibrillation diagnosed in 2014, CAD status post a stent in 2007 presented to the ED with intermittent palpitations with chest pain and shortness of breath. #P-afib: on Cardizem CD 180mg BID as per Cardio ; recently Toprol was changed to cardizem as per cardio and now increased the dose, on Eliquis continue #hX OF CAD with hx of stent: continue with aspirin and statin, nuclear stress test as per cerdio for further evaluation #Hx of HLD: continue statins #HTN: cont home meds DVT Px: eLIQUIS
--- NOTE | 2020-02-07 19:00 | PN ---
Physical Exam: SUBJECTIVE: Patient seen and examined in the ED, said she is feeling "okay", continues to feel occasional palpitations but otherwise feels mildly improved. Upon further discussion of abnormal lipid panel, patient emphasized that she has not taken atorvastatin in over 10 years and refuses to take it as she normally take pravastatin at home. OBJECTIVE: Vital Signs Period Temp Pulse Resp BP Sys/Perez Pulse Ox Last 24 Hr 98.0 F-98.1 F 60-74 12-20 108-139/70-99 100-100 GENERAL: female, appears stated age, somewhat tired but in no acute distress, fully oriented, on RA, appears uncomfortable in ED bed HEAD: Normal with no signs of trauma EYES: PERRL, direct and consensual pupillary reflex intact, extraocular movements intact, conjunctiva clear ENT: moist mucous membranes LUNGS: CTAB, no wheezing appreciated HEART: RRR, clear S1 S2 appreciated with faint systolic murmur ABDOMEN: Soft, nontender, nondistended, active bowel sounds EXTREMITIES: radial and dorsalis pedis pulses easily palpable, warm to touch, no peripheral edema noted NEUROLOGICAL: Cranial nerves II through XII grossly intact, normal speech PSYCH: mildly depressed mood, affect congruent with mood, responds appropriately, good eye contact SKIN: Warm to touch, no other rashes or lesions noted Laboratory Results - last 24 hr 02/06/20 02/07/20 02/07/20 08:17 07:57 07:57 WBC 10.1 H RBC 4.80 Hgb 14.2 Hct 41.8 MCV 87.1 MCH 29.5 MCHC 33.8 RDW 13.4 Plt Count 240 MPV 8.1 Absolute Neuts (auto) 6.3 Neutrophils % 62.6 Lymphocytes % 28.0 Monocytes % 8.1 Eosinophils % 0.7 Basophils % 0.6 Nucleated RBC % 0 Sodium 140 Potassium 4.2 Chloride 106 Carbon Dioxide 27 Anion Gap 7 L BUN 19.8 H Creatinine 0.7 Est GFR (CKD-EPI)AfAm 112.26 Est GFR (CKD-EPI)NonAf 96.86 Random Glucose 101 Hemoglobin A1c % Calcium 9.3 Creatine Kinase 120 Troponin I < 0.02 Triglycerides 266 H Cholesterol 224 H Total LDL Cholesterol 134 H HDL Cholesterol 59 TSH 2.70 Urine Color Yellow Urine Appearance Clear Urine pH 6.0 Ur Specific [place] 1.025 Urine Protein Negative Urine Glucose (UA) Negative Urine Ketones Trace Urine Blood Negative Urine Nitrite Negative Urine Bilirubin Negative Urine Urobilinogen 0.2 Ur Leukocyte Esterase Trace Urine WBC (Auto) 42.5 Urine RBC (Auto) 30.8 Urine Casts (Auto) 0.51 U Epithel Cells (Auto) 12.5 Urine Bacteria (Auto) 1100.2 02/07/20 07:57 WBC RBC Hgb Hct MCV MCH MCHC RDW Plt Count MPV Absolute Neuts (auto) Neutrophils % Lymphocytes % Monocytes % Eosinophils % Basophils % Nucleated RBC % Sodium Potassium Chloride Carbon Dioxide Anion Gap BUN Creatinine Est GFR (CKD-EPI)AfAm Est GFR (CKD-EPI)NonAf Random Glucose Hemoglobin A1c % 6.2 Calcium Creatine Kinase Troponin I Triglycerides Cholesterol Total LDL Cholesterol HDL Cholesterol TSH Urine Color Urine Appearance Urine pH Ur Specific [place] Urine Protein Urine Glucose (UA) Urine Ketones Urine Blood Urine Nitrite Urine Bilirubin Urine Urobilinogen Ur Leukocyte Esterase Urine WBC (Auto) Urine RBC (Auto) Urine Casts (Auto) U Epithel Cells (Auto) Urine Bacteria (Auto) Active Medications Generic Name Dose Route Start Last Admin Trade Name Freq PRN Reason Stop Dose Admin Apixaban 5 mg 02/06/20 22:00 02/07/20 09:30 Eliquis - PO 5 mg BID LACEY Administration Aspirin 81 mg 02/07/20 10:00 02/07/20 09:30 Asa - PO 81 mg DAILY LACEY Administration Atorvastatin Calcium 40 mg 02/07/20 09:51 Lipitor - PO HS LACEY Diltiazem HCl 180 mg 02/07/20 22:00 Cardizem Cd - PO BID LACEY Famotidine 20 mg 02/07/20 10:00 02/07/20 09:31 Pepcid - PO 20 mg DAILY LACEY Administration Hydrochlorothiazide 12.5 mg 02/07/20 10:00 02/07/20 09:31 Hctz - PO 12.5 mg DAILY LACEY Administration Lisinopril 10 mg 02/06/20 23:45 02/06/20 23:38 Prinivil PO 10 mg HS LACEY Administration Methocarbamol 1,500 mg 02/06/20 13:04 Robaxin - PO Q8H PRN BACK PAIN ASSESSMENT/PLAN: 54yo F with PMHx of HTN, HLD, afib on Eliquis, CAD s/p stent (2007), and normal Echo in 01/2020 (per notes reviewed) who presented on 02/06/20 with intermittent palpitations and L sided CP during palpitation episodes. Initial workup was remarkable for an abnormal lipid panel, but was otherwise unremarkable including CBC/BMP/LFTs/TSH in range, troponin not detected, and a normal UA. CXR showed no acute pathology and EKG showed NSR with 1st degree AV block and L A+V enlargement. Patient was admitted for CP in setting of palpitations and ACS r/o. COVID pending. #CP in setting of palpitations - highly likely due to worsening afib - continue home eliquis - increase diltiazem to 180 BID for improved control of intermittent palpitations - cardiology consulted - appreciate recs #CAD s/p stents - stress test for further ACS workup - continue home asa and statin #HLD - continue hospital atorvastatin - increased dose to 40 HS (patient takes pravastatin 40 HS at home) #HTN - continue home HCTZ and lisinopril #Back strain - continue home methocarbamol PRN #FEN - no standing fluids - replete lytes PRN - cholesterol controlled diet - NPO after midnight #PPX - DVT: eliquis - GI: famotidine #Dispo: continue monitoring Visit type - Emergency Visit Emergency Visit: Yes ED Registration Date: 02/06/20 Care time: The patient presented to the Emergency Department on the above date and was hospitalized for further evaluation of their emergent condition. - New Patient This patient is new to me today: Yes Date on this admission: 02/08/20 - Critical Care Critical Care patient: No ATTENDING PHYSICIAN STATEMENT I saw and evaluated the patient. I reviewed the resident's note and discussed the case with the resident. I agree with the resident's findings and plan as documented. SUBJECTIVE: OBJECTIVE: ASSESSMENT AND PLAN:
[2020-02-07] MEDS: ATORVASTATIN CA 40 MG TABLET (FP) PO SCH (21:28)
[2020-02-07] MEDS: LISINOPRIL 10 MG TABLET (FP) PO SCH (21:28)
[2020-02-07] MEDS ORDERED: SODIUM CHLORIDE 250 ML IV STA (23:43)
[2020-02-08] MEDS ORDERED: METOPROLOL TARTRATE 5 MG/5 ML VIAL IVPUSH PRN (00:26)
[2020-02-08] MEDS ORDERED: REGADENOSON 0.4 MG/5 ML PRE-FILLED SYRINGE IVPUSH ONE ×2 (09:45→10:22)
[2020-02-08] MEDS: FAMOTIDINE 20 MG TABLET PO SCH (12:04)
[2020-02-08] MEDS: HYDROCHLOROTHIAZIDE 12.5 MG CAPSULE (FP) PO SCH (12:04)
[2020-02-08] MEDS: ASPIRIN 81 MG CHEWABLE TABLETS PO SCH (12:04)
[2020-02-08] MEDS: APIXABAN 5 MG TABLET PO SCH ×2 (12:04→21:31)
--- NOTE | 2020-02-08 12:58 | PN ---
Progress Note (short form) - Note Progress Note: cc: palps, sob s: episode palps overnight, HR 150s-160s. improved with IV metoprolol. this morning no chest pain, palps, dizziness, dyspnea Current Medications Generic Name Dose Route Start Last Admin Trade Name Freq PRN Reason Stop Dose Admin Apixaban 5 mg 02/06/20 22:00 02/08/20 12:04 Eliquis - PO 5 mg BID LACEY Administration Aspirin 81 mg 02/07/20 10:00 02/08/20 12:04 Asa - PO 81 mg DAILY LACEY Administration Atorvastatin Calcium 40 mg 02/07/20 09:51 02/07/20 21:28 Lipitor - PO 40 mg HS LACEY Administration Diltiazem HCl 180 mg 02/07/20 22:00 02/08/20 12:04 Cardizem Cd - PO 180 mg BID LACEY Administration Famotidine 20 mg 02/07/20 10:00 02/08/20 12:04 Pepcid - PO 20 mg DAILY LACEY Administration Hydrochlorothiazide 12.5 mg 02/07/20 10:00 02/08/20 12:04 Hctz - PO 12.5 mg DAILY LACEY Administration Lisinopril 10 mg 02/06/20 23:45 02/07/20 21:28 Prinivil PO 10 mg HS LACEY Administration Methocarbamol 1,500 mg 02/06/20 13:04 Robaxin - PO Q8H PRN BACK PAIN Metoprolol Tartrate 5 mg 02/08/20 00:26 02/08/20 00:48 Lopressor Injection - IVPUSH 5 mg Q4H PRN Administration TACHYCARDIA Vital Signs Period Temp Pulse Resp BP Sys/Perez Pulse Ox Last 24 Hr 97.7 F-98.5 F 64-136 18-20 105-141/63-89 98-100 nad no jvd rrr s1s2 no mrg cta bl nl eff aao3 no le e/c/c abd nt nd pos bs no jaundice diaphoresis pos dp pt no carotid bruits ecg: sr, nl intervals, no ischemic changes echo 01/2020: nl lv/rv, no sig valve path tele: sr cxr: nl a/p: 54 f hx cad s/p mi/pci 2007, htn, hld, pafib here with palps, sob. palps, pafib: -prior event monitor had shown episodes of afib. she had been maintained on toprol but recently palps have been worse so had changed toprol to dilt 120 bid but reports still with episodic palps. - episode HR 150s overnight, dilt increased to 180 mg BID today - continue, plan to uptitrate if further episodes noted -cont ac with naye cad: -currently with sob when having palps. no signs chf or acs. Recent echo unremarkable. Will eval further with nuclear stress test. -cont statin, asa htn: -cont home meds hld: -cont statin
--- NOTE | 2020-02-08 13:55 | PN ---
Teaching Attending Note Name of Resident: Narayan Holcomb ATTENDING PHYSICIAN STATEMENT I saw and evaluated the patient. I reviewed the resident's note and discussed the case with the resident. I agree with the resident's findings and plan as documented. SUBJECTIVE: no fever or chills, no cp . pakpitations last night and early this am . this resolved. walked to bathroom and now feels winded but no palpitations. no dysuria , fever or cough OBJECTIVE: NAD , awake, cooperative, no JVD CV: RRR, no MRG Lungs: CTAB Abd: soft, NT, ND , NL BS Ext : no edema or erythema on lower or upper extremities ASSESSMENT AND PLAN: 54 y/o lady with h/o HTN, HLP, P A fib , CAD s/p stenting , who presented with palpitations and was found to have A fib with RVR 1- A fib with RVR: now in sinus rhythm, with episodes of A fib with RVR last night - cont cardizem. dose was increased to 180 BID this am . first dose of 180 was received last night . - cont eliquis - expect HR to be controlled on this regimen 2- SOB : likely due to the intermittent RVR. No signs of CHF on exam or Cxray - stress test neg - f/u as out pt. 3- HTN: cont lisinopril /HCTZ dispo : if she remains controlled. she can go home this evening. d/w dr. Bear
--- NOTE | 2020-02-08 15:08 | EKG ---
Test Reason : Blood Pressure : / mmHG Vent. Rate : 118 BPM Atrial Rate : 120 BPM P-R Int : 000 ms QRS Dur : 090 ms QT Int : 322 ms P-R-T Axes : 000 -09 -06 degrees QTc Int : 451 ms ATRIAL FIBRILLATION WITH RAPID VENTRICULAR RESPONSE MINIMAL VOLTAGE CRITERIA FOR LVH, MAY BE NORMAL VARIANT NONSPECIFIC T WAVE ABNORMALITY ABNORMAL ECG WHEN COMPARED WITH ECG OF 06-FEB-2020 15:24, ATRIAL FIBRILLATION HAS REPLACED SINUS RHYTHM VENT. RATE HAS INCREASED BY 50 BPM NONSPECIFIC T WAVE ABNORMALITY, WORSE IN LATERAL LEADS Confirmed by Dennis Prieto MD ([id number]) on 02/08/2020 3:07:40 PM Referred By: Confirmed By:Dennis Prieto MD
--- NOTE | 2020-02-08 18:19 | PN ---
Physical Exam: SUBJECTIVE: Patient seen and examined OBJECTIVE: Vital Signs Period Temp Pulse Resp BP Sys/Perez Pulse Ox Last 24 Hr 97.7 F-98.6 F 64-136 18-18 105-141/62-86 98-99 GENERAL: The patient is awake, alert, and fully oriented, in no acute distress. HEAD: Normal with no signs of trauma. EYES: PERRL, extraocular movements intact, sclera anicteric, conjunctiva clear. No ptosis. ENT: Ears normal, nares patent, oropharynx clear without exudates, moist mucous membranes. NECK: Trachea midline, full range of motion, supple. LUNGS: Breath sounds equal, clear to auscultation bilaterally, no wheezes, no crackles, no accessory muscle use. HEART: Regular rate and rhythm, S1, S2 without murmur, rub or gallop. ABDOMEN: Soft, nontender, nondistended, normoactive bowel sounds, no guarding, no rebound, no hepatosplenomegaly, no masses. EXTREMITIES: 2+ pulses, warm, well-perfused, no edema. NEUROLOGICAL: Cranial nerves II through XII grossly intact. Normal speech, gait not observed. PSYCH: Normal mood, normal affect. SKIN: Warm, dry, normal turgor, no rashes or lesions noted Laboratory Results - last 24 hr 02/06/20 15:16 COVID-19 (KIRAN) Not detected Active Medications Generic Name Dose Route Start Last Admin Trade Name Freq PRN Reason Stop Dose Admin Apixaban 5 mg 02/06/20 22:00 02/08/20 12:04 Eliquis - PO 5 mg BID LACEY Administration Aspirin 81 mg 02/07/20 10:00 02/08/20 12:04 Asa - PO 81 mg DAILY LACEY Administration Atorvastatin Calcium 40 mg 02/07/20 09:51 02/07/20 21:28 Lipitor - PO 40 mg HS LACEY Administration Diltiazem HCl 180 mg 02/07/20 22:00 02/08/20 12:04 Cardizem Cd - PO 180 mg BID LACEY Administration Famotidine 20 mg 02/07/20 10:00 02/08/20 12:04 Pepcid - PO 20 mg DAILY LACEY Administration Hydrochlorothiazide 12.5 mg 02/07/20 10:00 02/08/20 12:04 Hctz - PO 12.5 mg DAILY LACEY Administration Lisinopril 10 mg 02/06/20 23:45 02/07/20 21:28 Prinivil PO 10 mg HS LACEY Administration Methocarbamol 1,500 mg 02/06/20 13:04 Robaxin - PO Q8H PRN BACK PAIN Metoprolol Tartrate 5 mg 02/08/20 00:26 02/08/20 00:48 Lopressor Injection - IVPUSH 5 mg Q4H PRN Administration TACHYCARDIA ASSESSMENT/PLAN: ATTENDING PHYSICIAN STATEMENT I saw and evaluated the patient. I reviewed the resident's note and discussed the case with the resident. I agree with the resident's findings and plan as documented. SUBJECTIVE: OBJECTIVE: ASSESSMENT AND PLAN:
--- NOTE | 2020-02-08 18:26 | DS ---
Physical Exam: SUBJECTIVE: Patient seen and examined, early this morning she was feeling well besides a bit tired and "numb" from everything that has been going on and she endorse a mild headache. Last night she experiences an episode of palpitations to the 160s which resolved upon receiving 5mg IV metoprolol. Today at around 3pm, she experiences another episode of palpitations but appeared to be subjective as per nursing there were no wave or rate abnormalities. At around 5.30pm when patient was re-examined, she said she can feel mild palpitations but auscultation was unremarkable as well as wave forms on the monitor. Patient is otherwise denying other symptoms such as NVD, chills, fever, dizziness. OBJECTIVE: Vital Signs Period Temp Pulse Resp BP Sys/Perez Pulse Ox Last 24 Hr 97.7 F-98.6 F 64-136 18-18 105-141/62-86 98-99 PHYSICAL EXAM GENERAL: female, appears stated age, somewhat tired but in no acute distress, fully oriented, lying comfortably in bed breathing RA HEAD: Normal with no signs of trauma EYES: PERRL, direct and consensual pupillary reflex intact, extraocular movements intact, conjunctiva clear ENT: moist mucous membranes LUNGS: CTAB, no wheezing appreciated HEART: RRR, clear S1 S2 appreciated with faint systolic murmur ABDOMEN: Soft, nontender, nondistended, active bowel sounds EXTREMITIES: radial and dorsalis pedis pulses easily palpable, warm to touch, no peripheral edema noted NEUROLOGICAL: Cranial nerves II through XII grossly intact, normal speech PSYCH: tired mood, affect congruent with mood, responds appropriately, good eye contact SKIN: Warm to touch, no other rashes or lesions noted LABS Laboratory Results - last 24 hr 02/06/20 15:16 COVID-19 (KIRAN) Not detected HOSPITAL COURSE: 54yo F with PMHx of HTN, HLD, afib on Eliquis, CAD s/p stent (2007), and normal Echo in 01/2020 (per notes reviewed) who presented on 02/06/20 with intermittent palpitations and L sided CP during palpitation episodes. Initial workup was remarkable for an abnormal lipid panel, but was otherwise unremarkable including CBC/BMP/LFTs/TSH in range, troponin not detected, and a normal UA. CXR showed no acute pathology and EKG showed NSR with 1st degree AV block and L A+V enlargement. Patient was admitted for CP in setting of palpitations and ACS r/o. COVID negative. Patient was started on 40 atorvastatin and her metoprolol was switched to diltiazem 180 BID for better rate control. Stress test on 02/08/2020 was unremarkable. Over her hospital course patient's palpitations improved and chest pain resolved, and patient was medically optimized for discharge. Date of Admission:02/06/20 Date of Discharge: 02/08/20 Minutes to complete discharge: 37 Discharge Summary Problems reviewed: Yes Reason For Visit: PALPITATIONS; ACUTE CORONARY SYNDROME Current Active Problems Chest pain (Acute) Palpitation (Acute) Paroxysmal atrial fibrillation (Acute) CAD (coronary artery disease) (Chronic) Hypertension (Chronic) Condition: Stable - Instructions Diet, Activity, Other Instructions: Hospital course: You came to the hospital because you were experiencing palpitations and chest pain/tightness. due to a fib Your HbA1c was a little higher than normal (6.3%). this indicated pre-diabetes . This test shows us how your sugar levels have been over the past 3 months. Please follow up with an passenger barge master to discuss home glucose monitoring. Please eat foods low in salt and saturated fats and try to get regular exercise. Medications: - Please start taking Cardizem 180mg by mouth twice a day (once in the morning and once in the evening) - Please start taking Aspirin 81mg by mouth once a day - Please take the rest of your home medications as previously prescribed - discuss with your primary MD , the option of metformin for your pre-diabetes Follow-up: - Please follow up with your primary care physician within 1 week - Please follow up with your exercise scientist within 1 week. If you do not have a exercise scientist, a referral for Dr. Ordaz has been provided Other instructions: - Please return to the ER if you have any uncontrollable palpitations, chest pain, confusion, shortness of breath, or any serious symptoms. Referrals: Kelvin Mckenna MD [Primary Care Provider] - 1 Week Angel Ordaz MD [Staff Physician] - 1 Week Disposition: HOME - Home Medications Comprehensive Discharge Medication List: Ambulatory Orders Lisinopril/Hydrochlorothiazide [Lisinopril-Hctz 10-12.5 mg Tab] 1 each PO DAILY 06/27/16 Pravastatin Sodium [Pravachol -] 40 mg PO HS 06/27/16 Famotidine [Pepcid AC] 20 mg PO DAILY 05/30/19 Apixaban [Eliquis] 5 mg PO BID 02/06/20 Aspirin [ASA -] 81 mg PO DAILY 30 Days #30 tab.chew 02/08/20 Diltiazem Cd [Cardizem Cd -] 180 mg PO BID 30 Days #60 cap.cd.24h 02/08/20 This patient is new to me today: No Emergency Visit: Yes ED Registration Date: 02/06/20 Care time: The patient presented to the Emergency Department on the above date and was hospitalized for further evaluation of their emergent condition. Critical Care patient: No - Discharge Referral Referred to [facility] No ATTENDING PHYSICIAN STATEMENT I saw and evaluated the patient. I reviewed the resident's note and discussed the case with the resident. I agree with the resident's findings and plan as documented. SUBJECTIVE: OBJECTIVE: ASSESSMENT AND PLAN:
[2020-02-08] MEDS: ATORVASTATIN CA 40 MG TABLET (FP) PO SCH (21:31)
[2020-02-08] MEDS: LISINOPRIL 10 MG TABLET (FP) PO SCH (21:31)
[2020-02-09 06:04] VITALS: PULSE 69
[2020-02-09 09:32] VITALS: BP 111/66; TEMP 98.6
[2020-02-09] MEDS: APIXABAN 5 MG TABLET PO SCH (09:32)
[2020-02-09] MEDS: ASPIRIN 81 MG CHEWABLE TABLETS PO SCH (09:32)
[2020-02-09] MEDS: FAMOTIDINE 20 MG TABLET PO SCH (09:32)
[2020-02-09] MEDS: HYDROCHLOROTHIAZIDE 12.5 MG CAPSULE (FP) PO SCH (09:32)
== END 2020-02-09 13:03 | disposition home or self-care (01) ==
LOC: JER 10:23 → JERBED 12:50 → J4S 02-07 21:07
PROVIDERS: ADMIT Internal Medicine; ATTEND Internal Medicine
PROC: 3E023GC Introduction of Other Therapeutic Substance into Muscle, Percutaneous Approach (ICD-10-PCS; principal; 2020-02-06)
PROC: 3E033GC Introduction of Other Therapeutic Substance into Peripheral Vein, Percutaneous Approach (ICD-10-PCS; 2020-02-06)
PROC: 3E0337Z Introduction of Electrolytic and Water Balance Substance into Peripheral Vein, Percutaneous Approach (ICD-10-PCS; 2020-02-06)
DX: I24.9 Acute ischemic heart disease, unspecified (principal); I10 Essential (primary) hypertension; I48.0 Paroxysmal atrial fibrillation; Z95.5 Presence of coronary angioplasty implant and graft; R07.9 Chest pain, unspecified; R00.2 Palpitations; Z79.01 Long term (current) use of anticoagulants; S39.012A Strain of muscle, fascia and tendon of lower back, initial encounter; W18.39XA Other fall on same level, initial encounter; Y93.89 Activity, other specified; Y92.89 Other specified places as the place of occurrence of the external cause; E66.01 Morbid (severe) obesity due to excess calories; Z68.33 Body mass index [BMI] 33.0-33.9, adult; E78.5 Hyperlipidemia, unspecified
CPT/HCPCS: 36415; 71045-TC-FY; 78452-TC; 80048; 80053; 80061; 81003; 82550; 83036; 83721; 84443; 84484; 85025; 87086; 93005; 93010; 93017; 99285-25; A9502; G0378; J2785; U0003

== ENCOUNTER 2020-03-27 22:03 | Emergency (ER) | payer OTHER ==
[2020-03-27 22:20] VITALS: TEMP 98.3; BMI 30.9
--- OUTSIDE RECORDS SUMMARY | 2020-03-27 22:33 | XMS ---
:1965 Author Organization [facility] Care Team Providers Name Role Phone WALDO CASTELLANO PA-C Unavailable Unavailable Re-disclosure Warning The records that you are about to access may contain information from federally- assisted alcohol or drug abuse programs. If such information is present, then the following federally mandated warning applies: This information has been disclosed to you from records protected by federal confidentiality rules (42 CFR part 2). The federal rules prohibit you from making any further disclosure of this information unless further disclosure is expressly permitted by the written consent of the person to whom it pertains or as otherwise permitted by 42 CFR part 2. A general authorization for the release of medical or other information is NOT sufficient for this purpose. The Federal rules restrict any use of the information to criminally investigate or prosecute any alcohol or drug abuse patient.The records that you are about to access may contain highly sensitive health information, the redisclosure of which is protected by Article 27-F of the [facility] Public Health law. If you continue you may haveaccess to information: Regarding HIV / AIDS; Provided by facilities licensed or operated by the [facility] Office of Mental Health; or Provided by the [facility] Office for People With Developmental Disabilities. If such information is present, then the following [facility] mandated warning applies: This information has been disclosed to you from confidential records which are protected by state law. State law prohibits you from making any further disclosure of this information without the specific written consent of the person to whom it pertains, or as otherwise permitted by law. Any unauthorized further disclosure in violation of state law may result in a fine or mcfp sentence or both. A general authorization for the release of medical or other information is NOT sufficient authorization for further disclosure. Advance Directives Directive Description Direct Mail Manager Hot Shot Status Observation Data S ource(s) Description Advance No completed [facility] Advance No [facility] Allergies and Adverse Reactions Type Description Substance Reaction Status Data Source(s ) Drug allergy No Known Allergies No Known NO KNOWN ALLERG [facility] Encounters Encounter Providers Location Date Indications Data Source(s ) Emergency Attender: WALDO 08/13/2019 N/V AR[facility]-EMPRESS [facility] 06:[facility]:00 PM Hospital [facility] - 08/13/2019 10:56:00 PM [facility] N/V ARR-EMPRESS Patient discharged. Medications Medication Brand Start Product Dose Route Administrative Pharmacy St at Indications Reaction Description Data Name Date Form Instructions Instructions Source(s) No known complet [facility] ed [place] [facility] Insurance Providers Payer name Policy type Policy ID Covered Covered democrat's Policy P sharon / Coverage democrat ID relationship to [employer] Inf ormation type [place] CIGNA [id number] SP [id number] HEALTHCARE PPO CIGNA [id number] PT [id number] HEALTHCARE PPO CIGNA [id number] SP [id number] 1 HEALTHCARE PPO Problems, Conditions, and Diagnoses Code Display Name Description Problem Type Effective Dates Data Source(s) R51 Headache R51 Diagnosis 08/13/2019 [facility] 08:54:00 PM EST Hospital J11.1 Influenza due to J11.1 Diagnosis 08/13/[address] [facility] unidentified influenza 08:54:00 PM E Hospital virus with other respiratory manifestations Surgeries/Procedures Procedure Description Date Indications Data Source(s) Electrocardiographic procedure 08/13/2019 [facility] (procedure) 12:00:00 AM Hospital EST Plain chest X-ray (procedure) 08/13/2019 [facility] 12:00:00 AM Hospital EST Computed tomography of head 08/13/2019 [facility] without contrast 12:00:00 AM Hospital EST Results ID Date Data Source [id number] 02/06/2020 03:16:00 PM EDT [facility] Name Value Range Interpretation Description Data Sup porting Code Source(s) Document(s ) SARS [facility] coronavirus 2 RNA This lab was ordered by [facility] and reported by [facility]. ID Date Data Source [id number] 08/13/2019 08:18:00 PM EST [facility] Name Value Range Interpretation Description Data Sup porting Code Source(s) Document(s ) Alanine 36 U/L [facility] [Enzymatic Hospital activity/volume] in Serum or Plasma ID Date Data Source [id number] 08/13/2019 08:18:00 PM [facility] Name Value Range Interpretation Description Data Sup porting Code Source(s) Document(s ) Alkaline 75 U/L [facility] phosphatase Hospital [Enzymatic activity/volume ] in Serum or Plasma ID Date Data Source [id number] 08/13/2019 08:18:00 PM [facility] Name Value Range Interpretation Description Data Sup porting Code Source(s) Document(s ) Bilirubin.t 0.9 mg/dL [facility] [Mass/volum e] in Serum or Plasma ID Date Data Source [id number] 08/13/2019 08:18:00 PM [facility] Name Value Range Interpretation Code Description Data Felipa rce(s) Supporting Document(s ) Albumin/Glob 1.7 [facility] ulin [Mass Hospital Ratio] in Serum or Plasma ID Date Data Source [id number] 08/13/2019 08:18:00 PM [facility] Name Value Range Interpretation Description Data Sup porting Code Source(s) Document(s ) Albumin 4.3 g/dL [facility] [Mass/volume Hospital ] in Serum or Plasma ID Date Data Source [id number] 08/13/2019 08:18:00 PM EST [facility] Name Value Range Interpretation Description Data Sup porting Code Source(s) Document(s ) Protein 6.9 g/dL [facility] [Mass/volume Hospital ] in Serum or Plasma ID Date Data Source [id number] 08/13/2019 08:18:00 PM EST [facility] Name Value Range Interpretation Description Data Sup porting Code Source(s) Document(s ) Calcium 8.5 mg/dL [facility] [Mass/volume Hospital ] in Serum or Plasma ID Date Data Source [id number] 08/13/2019 08:18:00 PM EST [facility] Value Range Interpretation Code Description Data Felipa rce(s) Supporting Document(s ) Urea 41.7 [facility] nitrogen/Cre Hospital atinine [Mass Ratio] in Serum or Plasma ID Date Data Source [id number] 08/13/2019 08:18:00 PM EST [facility] Name Value Range Interpretation Description Data Sup porting Code Source(s) Document(s ) Creatinine 0.6 mg/dL [facility] [Mass/volume] Hospital in Serum or Plasma ID Date Data Source [id number] 08/13/2019 08:18:00 PM EST [facility] Name Value Range Interpretation Description Data Sup porting Code Source(s) Document(s ) Urea 25 mg/dL [facility] nitrogen Hospital [Mass/volume ] in Serum or Plasma ID Date Data Source [id number] 08/13/2019 08:18:00 PM EST [facility] Name Value Range Interpretation Code Description Data Felipa rce(s) Supporting Document(s ) Anion gap in 16 [facility] Serum or Hospital Plasma ID Date Data Source [id number] 08/13/2019 08:18:00 PM EST [facility] Name Value Range Interpretation Description Data Sup porting Code Source(s) Document(s ) Carbon 24 mmol/L [facility] dioxide, Hospital total [Moles/volu me] in Serum or Plasma ID Date Data Source [id number] 08/13/2019 08:18:00 PM [facility] Name Value Range Interpretation Description Data Sup porting Code Source(s) Document(s ) Chloride 102 [facility] [Moles/volum mmol/L Hospital e] in Serum or Plasma ID Date Data Source [id number] 08/13/2019 08:18:00 PM EST [facility] Name Value Range Interpretation Description Data Sup porting Code Source(s) Document(s ) Potassium 4.1 [facility] [Moles/volume mmol/L Hospital ] in Serum or Plasma ID Date Data Source [id number] 08/13/2019 08:18:00 PM [facility] Name Value Range Interpretation Description Data Sup porting Code Source(s) Document(s ) Sodium 138 mmol/L [facility] [Moles/volu Hospital me] in Serum or Plasma ID Date Data Source [id number] 08/13/2019 08:18:00 PM [facility] Name Value Range Interpretation Description Data Sup porting Code Source(s) Document(s ) Glucose 148 mg/dL [facility] [Mass/volume Hospital ] in Serum or Plasma ID Date Data Source [id number] 08/13/2019 08:18:00 PM [facility] THERAPEUTIC RANGES:UNFRACTIONATED HEPARI N THERAPY: 60-90 SECONDSARGATROBAN THERAPY: 49-99 SECONDS Name Value Range Interpretation Description Data Sup porting Code Source(s) Document(s ) aPTT in 35.5 s [facility] Platelet poor [facility] plasma by Coagulation assay ID Date Data Source [id number] 08/13/2019 08:18:00 PM [facility] THERAPEUTIC RANGE FOR STANDARD ORALANTIC OAGULANT THERAPY: 2.0-3.0THERAPEUTIC RANGE FOR HIGH DOSE ORALANTICOAGULANT THERAPY (MECHANICAL HEARTVALVE REPLACEMENT): 2.5-3.5 Name Value Range Interpretation Description Data Sup porting Code Source(s) Document(s ) INR in Platelet 1.2 [facility] poor plasma by Hospital Coagulation assay ID Date Data Source [id number] 08/13/2019 08:18:00 PM [facility] Name Value Range Interpretation Description Data Sup porting Code Source(s) Document(s ) PT panel - 13.1 s [facility] Platelet poor Hospital plasma by Coagulation assay ID Date Data Source [id number] 08/13/2019 08:18:00 PM [facility] Name Value Range Interpretation Code Description Data Supporting Source(s) Document(s ) NUCLEATED RBCS 0.0 % [facility] (AUTO Hospital DIFF%)DIS ID Date Data Source [id number] 08/13/2019 08:18:00 PM [facility] Name Value Range Interpretation Description Data Sup porting Code Source(s) Document(s ) Differential MANUAL [facility] cell count Hospital method - Blood ID Date Data Source [id number] 08/13/2019 08:18:00 PM [facility] Name Value Range Interpretation Code Description Data Felipa rce(s) Supporting Document(s ) Cells 100 [facility] Counted Hospital Total [#] in Blood ID Date Data Source [id number] 08/13/2019 08:18:00 PM [facility] PLT ESTIMATE ADEQUATE Name Value Range Interpretation Description Data Sup porting Code Source(s) Document(s ) PLATELET PRESENT [facility] COMMENT Hospital ID Date Data Source [id number] 08/13/2019 08:18:00 PM [facility] NEUT VACUOLES PRESENT Name Value Range Interpretation Code Description Data Supporting Source(s) Document(s ) WBC COMMENT PRESENT [facility] ID Date Data Source [id number] 08/13/2019 08:18:00 PM EST [facility] Name Value Range Interpretation Code Description Data Felipa rce(s) Supporting Document(s ) FEI CELLS OCC [facility] ID Date Data Source [id number] 08/13/2019 08:18:00 PM EST [facility] Name Value Range Interpretation Code Description Data Supporting Source(s) Document(s ) POLYCHROMASIA [facility] ID Date Data Source [id number] 08/13/2019 08:18:00 PM EST [facility] Name Value Range Interpretation Description Data Sup porting Code Source(s) Document(s ) Monocytes 0.36 [facility] [#/volume] in 10*3/uL Hospital Blood by Manual count ID Date Data Source [id number] 08/13/2019 08:18:00 PM [facility] Name Value Range Interpretation Description Data Sup porting Code Source(s) Document(s ) Lymphocytes 0.27 [facility] [#/volume] in 10*3/uL Hospital Blood by Manual count ID Date Data Source [id number] 08/13/2019 08:18:00 PM EST [facility] Name Value Range Interpretation Description Data Sup porting Code Source(s) Document(s ) Neutrophils 8.46 [facility] [#/volume] in 10*3/uL Hospital Blood by Manual count ID Date Data Source [id number] 08/13/2019 08:18:00 PM EST [facility] Name Value Range Interpretation Description Data Sup porting Code Source(s) Document(s ) Metamyelocytes/ 1 % [facility] 100 leukocytes Hospital in Blood by Manual count ID Date Data Source [id number] 08/13/2019 08:18:00 PM EST [facility] Name Value Range Interpretation Description Data Sup porting Code Source(s) Document(s ) Monocytes/100 4 % [facility] leukocytes in Hospital Blood by Manual count ID Date Data Source [id number] 08/13/2019 08:18:00 PM EST [facility] Name Value Range Interpretation Description Data Sup porting Code Source(s) Document(s ) Lymphocytes/100 3 % [facility] leukocytes in Hospital Blood by Manual count ID Date Data Source [id number] 08/13/2019 08:18:[address] [facility] Value Range Interpretation Description Data Sup porting Code Source(s) Document(s ) Neutrophils/100 92 % [facility] leukocytes in Hospital Blood by Manual count ID Date Data Source [id number] 08/13/2019 08:18:00 PM EST [facility] Name Value Range Interpretation Description Data Sup porting Code Source(s) Document(s ) Platelet mean 9.6 fL [facility] volume Hospital [Entitic volume] in Blood by Automated count ID Date Data Source [id number] 08/13/2019 08:18:00 PM EST [facility] Value Range Interpretation Description Data Sup porting Code Source(s) Document(s ) Platelets 224 [facility] [#/volume] in 10*3/uL Hospital Blood by Automated count ID Date Data Source [id number] 08/13/2019 08:18:00 PM EST [facility] Name Value Range Interpretation Description Data Sup porting Code Source(s) Document(s ) Erythrocyte 12.3 % [facility] distribution Hospital width [Ratio] by Automated count ID Date Data Source [id number] 08/13/2019 08:18:[address] [facility] Value Range Interpretation Description Data Sup porting Code Source(s) Document(s ) Erythrocyte mean 34.2 [facility] corpuscular g/dL Hospital hemoglobin concentration [Mass/volume] by Automated count ID Date Data Source [id number] 08/13/2019 08:18:[address] [facility] Value Range Interpretation Description Data Sup porting Code Source(s) Document(s ) Erythrocyte 28.3 pg [facility] corpuscular hemoglobin [Entitic mass] by Automated count ID Date Data Source [id number] 08/13/2019 08:18:[address] [facility] Value Range Interpretation Description Data Sup porting Code Source(s) Document(s ) Erythrocyte 82.8 fL [facility] corpuscular volume [Entitic volume] by Automated count ID Date Data Source [id number] 08/13/2019 08:18:[address] [facility] Value Range Interpretation Description Data Sup porting Code Source(s) Document(s ) Hematocrit 41.8 % [facility] [Volume Hospital Fraction] of Blood by Automated count ID Date Data Source [id number] 08/13/2019 08:18:[address] [facility] Value Range Interpretation Description Data Sup porting Code Source(s) Document(s ) Hemoglobin 14.3 g/dL [facility] [Mass/volume] Hospital in Blood ID Date Data Source [id number] 08/13/2019 08:18:[address] [facility] Value Range Interpretation Description Data Sup porting Code Source(s) Document(s ) Erythrocytes 5.05 [facility] [#/volume] in 10*6/uL Hospital Blood by Automated count ID Date Data Source [id number] 08/13/2019 08:18:[address] [facility] Value Range Interpretation Description Data Sup porting Code Source(s) Document(s ) Leukocytes 9.1 [facility] [#/volume] in 10*3/uL Hospital Blood by Automated count ID Date Data Source [id number] 08/13/2019 08:18:00 PM [facility] Name Value Range Interpretation Code Description Data Felipa rce(s) Supporting Document(s ) Lipase 22 U/L [facility] [Enzymatic Hospital activity/vo lume] in Serum or Plasma ID Date Data Source [id number] 08/13/2019 08:18:00 PM [facility] Name Value Range Interpretation Description Data Sup porting Code Source(s) Document(s ) Aspartate 24 U/L [facility] aminotransferase [place] [Enzymatic Hospital activity/volume] in Serum or Plasma Procedure Social History Code Duration Value Status Description Data Source(s ) Smoking Unknown if ever completed Unknown if ever [facility] smoked smoked Hospital Vital Signs ID Date Data Source UNK Name Value Range Interpretation Code Description Data Source(s) Systolic blood 123 mm[Hg] 123 mm[Hg] [facility] Respiratory rate 18 /min 18 /min [facility] Heart rate 75 /min 75 /min [facility] Body temperature 36.[address] [address] [facility] Body temperature 98.5 [degF] 98.5 [degF] [facility] Diastolic blood 71 mm[Hg] 71 mm[Hg] [facility] Body mass index 34.3 kg/m2 34.3 kg/m2 [facility] (BMI) [Ratio] Hospital Body weight 200 [lb_av] 200 [lb_av] [facility]
[2020-03-27] MEDS ORDERED: SODIUM CHLORIDE 0.9% 500 ML INFUS.BAG IV ONE (22:54)
[2020-03-27] MEDS ORDERED: ASPIRIN 81 MG CHEWABLE TABLETS PO ONE (22:54)
[2020-03-27] MEDS ORDERED: ONDANSETRON 4 MG/2 ML VIAL IVPUSH ONE (22:54)
--- NOTE | 2020-03-27 22:55 | PDOC ---
Documentation entered by Zainab Aparicio SCRIBE, acting as scribe for Kristin Robison MD. Kristin Robison MD: This documentation has been prepared by the Alessandra leiva Brenda, SCRIBE, under my direction and personally reviewed by me in its entirety. I confirm that the documentation accurately reflects all work, treatment, procedures, and medical decision making performed by me. Attending Attestation - Resident Resident Name: Letty Dickson - ED Attending Attestation I have performed the following: I have examined & evaluated the patient, The case was reviewed & discussed with the resident, I agree w/resident's findings & plan, Exceptions are as noted - HPI HPI: 03/27/20 22:53 this 54 yo female reports that starting last evening she had bodyaches,fatigue,headache,dizzying,nausea ,epigastric pain and the later chest pressure, HPI She was vacationing in the [place] and came back Friday - Physicial Exam PE: 03/27/20 23:10 54 yo female p/w multiple symptoms head ncat eyes rajendra and eomi neck supple lungs cta b/l cvs [id number] abdomen nontender skin warm and dry extremities no edema neuro axox3 - Medical Decision Making 03/27/20 23:15 diff diag includes ACS,viral syndrome, r/o covid,pna Discharge - Discharge Information Problems reviewed: Yes Clinical Impression/Diagnosis: Chest pain Condition: Improved Disposition: HOME - Follow up/Referral Referrals: Kelvin Mckenna MD [Primary Care Provider] - - Patient Discharge Instructions Patient Printed Discharge Instructions: DI for Atypical Chest Pain, [facility]- Coronavirus Instructions, [facility] COVID-19 Isolation Protocol Additional Instructions: You have been seen in the Emergency Department for your chest pain. Your EKG, chest X-ray, and labs, including Troponin (a heart enzyme), show no signs concerning for an emergent condition such as a heart attack or pneumonia. Your symptoms could possibly be due to a viral upper respiratory infection such as a cold or Coronavirus/COVID-19. At this time it's most important to stay hydrated and self-isolate (quarantine) at home for 14 days. You will receive a call in 1-2 days with your COVID test result. If you experience pain, you can take Tylenol or Ibuprofen as directed on the medication bottle, but do not exceed 3g of Ibuprofen or 4g of Tylenol a day. Follow-up with your primary care doctor within 1 week. Return to the Emergency Department immediately if you experience chest pain, difficulty breathing, passing out, or any other new or worsening symptom. - Post Discharge Activity
--- NOTE | 2020-03-27 23:02 | PDOC ---
History of Present Illness - General Chief Complaint: Chest Pain Stated Complaint: DIZZY Time Seen by Provider: 03/27/20 22:35 Past History - Medical History Allergies/Adverse Reactions: Allergies Allergy/AdvReac Type Severity Reaction Status Date / Time No Known Allergies Allergy Verified 07/14/19 12:00 Home Medications: Ambulatory Orders Lisinopril/Hydrochlorothiazide [Lisinopril-Hctz 10-12.5 mg Tab] 1 each PO DAILY 06/27/16 Pravastatin Sodium [Pravachol -] 40 mg PO HS 06/27/16 Famotidine [Pepcid AC] 20 mg PO DAILY 05/30/19 Apixaban [Eliquis] 5 mg PO BID 02/06/20 Aspirin [ASA -] 81 mg PO DAILY 30 Days #30 tab.chew 02/08/20 Diltiazem Cd [Cardizem Cd -] 180 mg PO BID 30 Days #60 cap.cd.24h 02/08/20 Anemia: Yes Asthma: No Cancer: No Cardiac Disorders: Yes (heart attack 2008, stent, PAF) CVA: No COPD: No CHF: No Dementia: No Diabetes: No GI Disorders: Yes (reflux) Disorders: No HTN: Yes Hypercholesterolemia: Yes Liver Disease: No Seizures: No Thyroid Disease: No - Surgical History Abdominal Surgery: No Appendectomy: No Cardiac Surgery: Yes (cardiac stents) Cholecystectomy: Yes Lung Surgery: No Neurologic Surgery: No Orthopedic Surgery: Yes (left shoulder arthroscopy 6 weeks ago) - Immunization History Immunization Up to Date: Yes - Psycho-Social/Smoking History Smoking Status: No Smoking History: Never smoked Have you smoked in the past 12 months: No Number of Cigarettes Smoked Daily: 0 - Substance Abuse Hx (Audit-C & DAST Scrn) How often the patient has a drink containing alcohol: Never Score: In Men: 4 or > Positive; In Women: 3 or > Positive: 0 Screen Result (Pos requires Nsg. Audit-10AR): Negative *Physical Exam - Vital Signs Last Vital Signs Temp Pulse Resp BP Pulse Ox 98.3 F 68 20 131/82 99 03/27/20 22:17 03/27/20 22:17 03/27/20 22:17 03/27/20 22:17 03/27/20 22:17 Heart Score/ECG Review - History History: Slightly suspicious - Electrocardiogram EKG: Normal - Age Age: 45-65 - Risk Factors Risk Factors Heart Score: Yes Hx Hypertension, Yes Hx Obesity Based on the list above the patient has:: 1-2 risk factors - Troponin Troponin: </= normal limit - Score Heart Score - Total: 2 ED Treatment Course - LABORATORY CBC & Chemistry Diagram: 03/27/20 23:00 03/27/20 23:00 - RADIOLOGY Radiology Studies Ordered: Category Date Time Status CHEST X-RAY PORTABLE* [RAD] Stat Radiology 03/27/20 22:52 Ordered Medical Decision Making - Medical Decision Making 03/27/20 23:20 HPI: 54yo F hx CAD s/p stent, HTN, s/p hysterectomy, on eliquis presents from home c/o 2 days myalgias, intermittent pressure type bitemporal headache similar to prior headaches, intermittent lightheadedness, fatigue/generalized weakness, decreased PO intake, epigastric pain, and nausea. Pt also c/o 2hrs intermittent nonexertional substernal nonradiating pressure type chest pain with one brief episode of ALVAREZ. Pt tried Tylenol at 7pm without improvement. Traveled back from on Friday. Had b/l pedal edema in but resolved. Denies hx PE/DVT, leg swelling or pain, malignancy, cough, hemoptysis, rhinorrhea, congestion, neck pain or stiffness, dysuria, hematuria, D/C, vomiting, F/C, diaphoresis, syncope, vaginal bleeding. ROS: Positive for Constitutional: Negative for chills, fever, fatigue, diaphoresis. HENT: Negative for sore throat, rhinorrhea, congestion. Eyes: Negative for visual disturbance. Respiratory: Negative for shortness of breath, cough, and wheezing. Cardiovascular: Negative for chest pain, palpitations, and leg swelling. Gastrointestinal: Negative for abdominal pain, blood in stool, constipation, diarrhea, nausea, and vomiting. Genitourinary: Negative for dysuria, flank pain, and hematuria. Musculoskeletal: Negative for myalgias, back pain, and neck pain. Skin: Negative for rash. Neurological: Negative for light-headedness, dizziness, vertigo, syncope, weakness, numbness and headaches. Psychiatric/Behavioral: Negative for behavioral problems and confusion. PE: Gen: Alert, NAD, comfortable-appearing. HEENT: PERRL, EOMI, MMM, NCAT. No conjunctival pallor. Sclera are non-icteric. CV: Regular rate and rhythm. No murmurs, rubs, or gallops. PULM: No resp distress. CTAB, no wheezes, rales, or rhonchi. ABD: soft, NT/ND, no rebound tenderness or guarding, no CVA tenderness. BACK: No TTP of c/t/l-spine. No step-offs or deformities. MSK: No bony deformities. 2+ pulses in all extremities. NEURO: AAOx3. PERRL. No gross CN deficits. Strength and sensation grossly intact throughout. EXTREMITIES: No cyanosis. No clubbing. No edema. No calf tenderness. PSYCH: Normal mood and thought pattern. SKIN: Warm and dry. Normal capillary refill. No rashes. No jaundice. MDM: Hemodynamically stable, afebrile, neurologically intact. Ddx: viral syndrome, flu, covid, PNA, ACS/NH (HS 2), arrhythmia, infection, metabolic derangement, anemia -flu -covid -EKG: sinus bradycardia, 59bpm, normal axis, QTc 411ms, TWI III, no ST elevations or depressions no significant changes from prior -CXR -Labs including trop x2 -IVF -Pepcid -ASA -Dispo: pending workup and reassessment, likely d/c home 03/28/20 02:30 CXR: no acute pathology Labs reviewed. No concerning findings. []2nd trop 03/28/20 03:46 2nd trop neg flu/covid call back placed quarantine instructions given Pt's pain has resolved. Will discharge home with PCP f/u. Return precautions given. Pt understands all discharge instructions and all questions were answered. Discharge - Discharge Information Problems reviewed: Yes Clinical Impression/Diagnosis: Chest pain Condition: Improved Disposition: HOME - Admission No - Follow up/Referral Referrals: Kelvin Mckenna MD [Primary Care Provider] - - Patient Discharge Instructions Patient Printed Discharge Instructions: DI for Atypical Chest Pain, [facility]- Coronavirus Instructions, [facility] COVID-19 Isolation Protocol Additional Instructions: You have been seen in the Emergency Department for your chest pain. Your EKG, chest X-ray, and labs, including Troponin (a heart enzyme), show no signs concerning for an emergent condition such as a heart attack or pneumonia. Your symptoms could possibly be due to a viral upper respiratory infection such as a cold or Coronavirus/COVID-19. At this time it's most important to stay hydrated and self-isolate (quarantine) at home for 14 days. You will receive a call in 1-2 days with your COVID test result. If you experience pain, you can take Tylenol or Ibuprofen as directed on the medication bottle, but do not exceed 3g of Ibuprofen or 4g of Tylenol a day. Follow-up with your primary care doctor within 1 week. Return to the Emergency Department immediately if you experience chest pain, difficulty breathing, passing out, or any other new or worsening symptom. - Post Discharge Activity
[2020-03-27] MEDS ORDERED: ASPIRIN 81 MG CHEWABLE TABLETS ONE (23:04)
[2020-03-27 23:35] LABS: BASO % 0.3 % (0-2.0); EOS % 0.8 % (0-4.5); HEMATOCRIT 38.2 % (32.4-45.2); HEMOGLOBIN 13.1 GM/dL (10.7-15.3); LYMPH % 30.4 % (8-40); MCH 30.3 pg (25.7-33.7); MCHC 34.4 g/dl (32.0-36.0); MEAN PLT VOLUME 8.2 fl (7.5-11.1); MONO % 8.2 % (3.8-10.2); NEUT % 60.3 % (42.8-82.8); PLATELET COUNT 223 K/MM3 (134-434); RBC 4.34 M/mm3 (3.60-5.2); RDW 13.9 % (11.6-15.6); WHITE BLOOD COUNT 8.5 K/mm3 (4.0-10.0)
[2020-03-27 23:40] LABS: INR 1.26 (0.83-1.09); PROTHROMBIN TIME (PATIENT) 14.9 SEC (9.7-13.0)
[2020-03-27 23:43] LABS: ACTIVATED PTT 35.2 SECONDS (25.2-36.5)
[2020-03-28 00:04] LABS: ALBUMIN 3.6 g/dl (3.4-5.0); ALK PHOS 79 U/L (45-117); ANION GAP 7 MMOL/L (8-16); BILIRUBIN,TOTAL 0.4 mg/dL (0.2-1); BLOOD UREA NITROGEN 18.9 mg/dL (7-18); CALCIUM 9.3 mg/dL (8.5-10.1); CHLORIDE 104 mmol/L (98-107); CO2 30 mmol/L (21-32); CREATININE 0.7 mg/dL (0.55-1.3); GLUCOSE,RANDOM 96 mg/dL (74-106); LIPASE 106 U/L (73-393); POTASSIUM 4.1 mmol/L (3.5-5.1); SGOT/AST 31 U/L (15-37); SGPT/ALT 64 U/L (13-61); SODIUM 141 mmol/L (136-145); TOT PROT 7.1 g/dl (6.4-8.2)
[2020-03-28 03:38] LABS: PH,URINE 6.5 (5.0-8.0); URINE APPEARANCE CLEAR; URINE BILIRUBIN NEGATIVE (NEGATIVE); URINE COLOR YELLOW; URINE GLUCOSE (UA) NEGATIVE (NEGATIVE); URINE KETONE NEGATIVE (NEGATIVE); URINE LEUK ESTERASE NEGATIVE (NEGATIVE); URINE NITRITE NEGATIVE (NEGATIVE); URINE PROTEIN NEGATIVE (NEGATIVE); URINE UROBILINOGEN 0.2 mg/dL (0.2-1.0)
[2020-03-28 03:52] VITALS: BP 121/83; PULSE 60
--- NOTE | 2020-03-28 09:54 | EKG ---
Test Reason : Blood Pressure : / mmHG Vent. Rate : 059 BPM Atrial Rate : 059 BPM P-R Int : 184 ms QRS Dur : 092 ms QT Int : 416 ms P-R-T Axes : 029 -08 014 degrees QTc Int : 411 ms SINUS BRADYCARDIA MINIMAL VOLTAGE CRITERIA FOR LVH, MAY BE NORMAL VARIANT NONSPECIFIC ST ABNORMALITY ABNORMAL ECG WHEN COMPARED WITH ECG OF 08-FEB-2020 00:24, SINUS RHYTHM HAS REPLACED ATRIAL FIBRILLATION VENT. RATE HAS DECREASED BY 59 BPM NONSPECIFIC T WAVE ABNORMALITY, IMPROVED IN LATERAL LEADS Confirmed by Dennis Prieto MD ([id number]) on 03/28/2020 9:53:36 AM Referred By: Confirmed By:Dennis Prieto MD
== END 2020-03-28 03:44 | disposition home or self-care (01) ==
LOC: JER 22:03
PROC: 3E033GC Introduction of Other Therapeutic Substance into Peripheral Vein, Percutaneous Approach (ICD-10-PCS; principal; 2020-03-27)
DX: R07.9 Chest pain, unspecified (principal)
CPT/HCPCS: 36415; 71045-TC-FY; 80053; 81003; 82550; 82553; 83690; 84484; 85025; 85610; 85730; 87804; 93005; 93010; 99285-25; C9803; U0003

== ENCOUNTER 2020-05-16 21:42 | Emergency (ER) | payer OTHER ==
[2020-05-16 22:04] VITALS: TEMP 97.8; BMI 24.9
[2020-05-16 22:42] LABS: BASO % 1.1 % (0-2.0); EOS % 0.6 % (0-4.5); HEMATOCRIT 46.6 % (32.4-45.2); HEMOGLOBIN 15.7 GM/dL (10.7-15.3); LYMPH % 29.4 % (8-40); MCH 29.5 pg (25.7-33.7); MCHC 33.7 g/dl (32.0-36.0); MEAN CELL VOLUME 87.4 fl (80-96); MEAN PLT VOLUME 8.9 fl (7.5-11.1); MONO % 6.3 % (3.8-10.2); NEUT % 62.6 % (42.8-82.8); PLATELET COUNT 249 K/MM3 (134-434); RBC 5.33 M/mm3 (3.60-5.2); RDW 13.3 % (11.6-15.6); WHITE BLOOD COUNT 8.9 K/mm3 (4.0-10.0)
[2020-05-16 22:59] LABS: CHLORIDE 101 mmol/L (98-107); POTASSIUM 3.4 mmol/L (3.5-5.1); SODIUM 135 mmol/L (136-145)
[2020-05-16 23:02] LABS: ALBUMIN 4.6 g/dl (3.4-5.0); ANION GAP 8 MMOL/L (8-16); BLOOD UREA NITROGEN 13.2 mg/dL (7-18); CO2 26 mmol/L (21-32); GLUCOSE,RANDOM 222 mg/dL (74-106); MAGNESIUM 2.2 mg/dL (1.8-2.4)
[2020-05-16 23:05] LABS: PHOSPHOROUS 3.2 mg/dL (2.5-4.9); SGOT/AST 18 U/L (15-37); SGPT/ALT 30 U/L (13-61)
[2020-05-16 23:06] LABS: BILIRUBIN,TOTAL 0.6 mg/dL (0.2-1); TOT PROT 8.5 g/dl (6.4-8.2)
[2020-05-16 23:08] LABS: ALK PHOS 94 U/L (45-117)
[2020-05-17 03:46] VITALS: BP 127/78; PULSE 67
== END 2020-05-17 03:48 | disposition home or self-care (01) ==
LOC: JER 21:42
DX: I48.0 Paroxysmal atrial fibrillation (principal); R00.2 Palpitations
CPT/HCPCS: 36415; 71045-TC-FY; 80053; 83735; 84100; 84436; 84443; 84481; 84484; 85025; 93005; 93010; 99285-25

== ENCOUNTER 2020-08-02 07:50 | Emergency (ER) | payer OTHER ==
[2020-08-02 08:00] VITALS: BP 122/63; PULSE 67; TEMP 98.5; BMI 27.3
[2020-08-02] MEDS ORDERED: KETOROLAC TROMETHAMINE 60 MG/2 ML VIAL IM ONE (08:51)
[2020-08-02] MEDS ORDERED: KETOROLAC TROMETHAMINE 60 MG/2 ML VIAL ONE (09:10)
== END 2020-08-02 09:20 | disposition home or self-care (01) ==
LOC: JER 07:50
PROC: 3E0233Z Introduction of Anti-inflammatory into Muscle, Percutaneous Approach (ICD-10-PCS; principal; 2020-08-02)
DX: S83.91XA Sprain of unspecified site of right knee, initial encounter (principal)
CPT/HCPCS: 73562-TC-RT-FY; 99284-25

== ENCOUNTER 2020-10-18 09:07 | Emergency (ER) | payer OTHER ==
[2020-10-18 09:14] VITALS: BMI 27.4
[2020-10-18] MEDS ORDERED: MECLIZINE HCL 25 MG TABLET (FP) PO ONE (09:39)
[2020-10-18] MEDS ORDERED: SODIUM CHLORIDE 0.9% 1000 ML INFUS.BAG IV ONE (09:39)
[2020-10-18] MEDS ORDERED: MECLIZINE HCL 25 MG TABLET (FP) ONE (09:58)
[2020-10-18 10:08] LABS: BASO % 0.7 % (0-2.0); EOS % 0.5 % (0-4.5); HEMATOCRIT 39.7 % (32.4-45.2); HEMOGLOBIN 13.3 GM/dL (10.7-15.3); LYMPH % 36.6 % (8-40); MCH 29.5 pg (25.7-33.7); MCHC 33.5 g/dl (32.0-36.0); MEAN CELL VOLUME 88.2 fl (80-96); MEAN PLT VOLUME 8.4 fl (7.5-11.1); MONO % 7.9 % (3.8-10.2); NEUT % 54.3 % (42.8-82.8); PLATELET COUNT 225 K/MM3 (134-434); RDW 12.9 % (11.6-15.6); WHITE BLOOD COUNT 6.8 K/mm3 (4.0-10.0)
[2020-10-18 10:35] LABS: CHLORIDE 106 mmol/L (98-107); SODIUM 140 mmol/L (136-145)
[2020-10-18 10:37] LABS: ALBUMIN 3.9 g/dl (3.4-5.0); ANION GAP 4 MMOL/L (8-16); BLOOD UREA NITROGEN 17.3 mg/dL (7-18); CALCIUM 9.2 mg/dL (8.5-10.1); CO2 29 mmol/L (21-32); GLUCOSE,RANDOM 102 mg/dL (74-106)
[2020-10-18 10:39] LABS: SGPT/ALT 25 U/L (13-61)
[2020-10-18 10:41] LABS: CREATININE 0.7 mg/dL (0.55-1.3); SGOT/AST 17 U/L (15-37)
[2020-10-18 10:42] LABS: BILIRUBIN,TOTAL 0.5 mg/dL (0.2-1); TOT PROT 7.1 g/dl (6.4-8.2)
[2020-10-18 10:45] LABS: ALK PHOS 75 U/L (45-117)
[2020-10-18 16:02] VITALS: BP 115/65; PULSE 70; TEMP 98.5
== END 2020-10-18 16:00 | disposition home or self-care (01) ==
LOC: JER 09:07
DX: R42 Dizziness and giddiness (principal)
CPT/HCPCS: 36415; 70450-TC; 80053; 82550; 82553; 84484; 85025; 93005; 93010; 99284-25; C9803; U0003; U0005

== ENCOUNTER 2021-04-13 10:53 | Emergency (ER) | payer OTHER ==
[2021-04-13 11:14] VITALS: TEMP 97.9; BMI 24.9
[2021-04-13] MEDS ORDERED: KETOROLAC TROMETHAMINE 30 MG/1 ML VIAL IM ONE (12:41)
[2021-04-13] MEDS ORDERED: METHOCARBAMOL 500 MG TABLET PO ONE (12:41)
[2021-04-13] MEDS ORDERED: METHOCARBAMOL 500 MG TABLET ONE (12:53)
[2021-04-13] MEDS ORDERED: KETOROLAC TROMETHAMINE 30 MG/1 ML VIAL ONE (12:53)
[2021-04-13] MEDS ORDERED: SODIUM CHLORIDE 500 ML IV STA (12:59)
[2021-04-13 13:13] LABS: HEMOGLOBIN 13.6 GM/dL (10.7-15.3); MCH 30.2 pg (25.7-33.7); MCHC 34.8 g/dl (32.0-36.0); MEAN CELL VOLUME 86.6 fl (80-96); MEAN PLT VOLUME 7.9 fl (7.5-11.1); PLATELET COUNT 237 10^3/uL (134-434); RDW 13.3 % (11.6-15.6); WHITE BLOOD COUNT 7.5 K/mm3 (4.0-10.0)
[2021-04-13 13:41] LABS: EPI CELLS >36 /uL (0-25.1); HYALINE CASTS 4 /uL (0-3.1); URINE APPEARANCE CLEAR; URINE BACTERIA 616 /uL (0-1359); URINE BILIRUBIN NEGATIVE (NEGATIVE); URINE COLOR YELLOW; URINE GLUCOSE (UA) NEGATIVE (NEGATIVE); URINE KETONE NEGATIVE (NEGATIVE); URINE LEUK ESTERASE 1+ (NEGATIVE); URINE NITRITE NEGATIVE (NEGATIVE); URINE PROTEIN NEGATIVE (NEGATIVE); URINE RBC 24 /uL (0-23.9); URINE WBC 61 /uL (0-25.8)
[2021-04-13 13:46] LABS: CHLORIDE 107 mmol/L (98-107); SODIUM 140 mmol/L (136-145)
[2021-04-13 13:48] LABS: ALBUMIN 3.7 g/dl (3.4-5.0); ANION GAP 7 MMOL/L (8-16); CALCIUM 9.4 mg/dL (8.5-10.1); CO2 27 mmol/L (21-32)
[2021-04-13 13:49] LABS: BLOOD UREA NITROGEN 16.2 mg/dL (7-18); GLUCOSE,RANDOM 83 mg/dL (74-106)
[2021-04-13 13:52] LABS: CREATININE 0.6 mg/dL (0.55-1.3); SGOT/AST 17 U/L (15-37); SGPT/ALT 29 U/L (13-61)
[2021-04-13 13:53] LABS: BILIRUBIN,TOTAL 0.6 mg/dL (0.2-1); TOT PROT 7.3 g/dl (6.4-8.2)
[2021-04-13 13:54] LABS: ALK PHOS 84 U/L (45-117)
[2021-04-13 17:02] VITALS: BP 119/74; PULSE 72
[2021-04-13] MEDS ORDERED: ACETAMINOPHEN 500 MG TABLET (FP) PO ONE (17:28)
[2021-04-13] MEDS ORDERED: ACETAMINOPHEN 500 MG TABLET (FP) ONE (17:33)
== END 2021-04-13 17:35 | disposition home or self-care (01) ==
LOC: JERFT 10:53
PROC: 3E0233Z Introduction of Anti-inflammatory into Muscle, Percutaneous Approach (ICD-10-PCS; principal; 2021-04-13)
PROC: 3E0337Z Introduction of Electrolytic and Water Balance Substance into Peripheral Vein, Percutaneous Approach (ICD-10-PCS; 2021-04-13)
DX: M54.50 Low back pain, unspecified (principal)
CPT/HCPCS: 36415; 74176-TC; 80053; 81003; 82550; 82553; 84484; 85027; 87086; 99284-25